=== PATIENT | male | born 1930 | race Caucasian/White ===

== ENCOUNTER 2016-08-03 07:10 | Day surgery (SDC) | payer MEDICARE, OTHER ==
[~2016-08-03] VITALS: Ht 170.2 cm; Wt 70.0 kg
[~2016-08-03 07:10] MED LIST: AMLO-39 PO; ASCO100089 PO; ASPI325T32 PO; ATOR20TA PO; CHOL5000 PO; CRAN500T PO; CYAN1TAB19 PO; GLUC500T12 PO; IRON PO; LISI10TA PO; OMEP-113 PO
[2016-08-03 07:41] VITALS: BP 140/76; PULSE 58; RESP 16; O2SAT 94
[2016-08-03] MEDS: Lactated Ringer's 1,000 ML IV SCH ×3 (07:44→08:22)
[2016-08-03] MEDS ORDERED: Lactated Ringer's 1,000 ML IV SCH (07:49)
[2016-08-03] MEDS ORDERED: Ondansetron 2 mg/mL 2 mL Inj IVPUSH PRN (07:50)
[2016-08-03] MEDS ORDERED: MetoCLOpramide 5 mg/mL 2 mL Inj IVPUSH PRN (07:50)
[2016-08-03 08:48] VITALS: BP 78/55; PULSE 60; RESP 12; O2SAT 93
[2016-08-03 08:50] VITALS: BP 84/46; PULSE 62; RESP 12; O2SAT 93
[2016-08-03 08:56] VITALS: BP 87/63; PULSE 63; RESP 12; O2SAT 95
[2016-08-03 09:14] VITALS: BP 122/72; PULSE 61; RESP 12; O2SAT 94
[2016-08-03 09:16] VITALS: BP 119/70; PULSE 60; RESP 14; O2SAT 98
--- NOTE | 2016-08-03 09:37 | ENDO ---
[address] [address] ENDOSCOPY PROCEDURE PATIENT: GAYLE MARTI : 1930 MR#: [id number] ADMIT: 08/03/2016 JOB ID: [id number] DATE OF SERVICE: 08/03/2016 PRIMARY PROVIDER: FISH Bull. PROCEDURE: 1. Esophagogastroscopy with biopsy. 2. Colonoscopy with hot snare polypectomy and cold forceps polypectomy. INDICATIONS: An 86-year-old male with a recent ED visit for epigastric pain. He has a history of reflux, remote history of EGD and what sounds like dilatation per chart review. He has a history of colon polyps as well. EGD and colonoscopy were therefore requested and are pursued today. EQUIPMENT: PCF-H180AL and GIF-H180J. SEDATION: Monitored anesthesia as provided by Dr. Kushal Crowell. COMPLICATIONS: None identified. BOWEL PREPARATION: Fair, adequate exam. PROCEDURE INFORMATION: After the risks and benefits were explained, written and verbal informed consent was obtained. The patient was brought into the endoscopy suite and placed into the left lateral decubitus position. Sedation was achieved using the above-stated medications with the addition of oxygen via nasal cannula. The scope was introduced into the mouth through the bite block, and advanced under direct visualization through the oropharynx, esophagus, down into the proximal stomach. Based on the presence of a massive hiatal hernia I could not advance down through the antrum nor into the duodenum. The scope was ultimately withdrawn, stomach decompressed, and the scope removed from the patient who tolerated the procedure well. The patient was then turned around. A digital rectal examination accomplished. Mild internal hemorrhoids. Prostate hypertrophy was apparent. The scope was then introduced into the rectum and advanced under direct visualization to the cecum as identified by the appendiceal orifice and ileocecal valve. The scope was slowly withdrawn to carefully examine the mucosa for any defects or lesions. Retroflexed views were avoided in the rectum. Multiple direct views were made through the dentate line for exclusion of pathology. The colon was decompressed. The scope removed from the patient who tolerated the procedure well. FINDINGS: 1. Duodenum: Not seen. 2. Stomach: The patient appeared to have a massive hiatal hernia. After coming down into the stomach, there was a cavernous proximal stomach but I could not find the egress point out towards antrum. Eventually, I was able to, and it actually appeared as though the antrum went back up into the chest alongside the lower esophageal sphincter suggestive of a paraesophageal hernia. We could not advance beyond the antrum. A single biopsy was taken from the stomach for exclusion of H. pylori or other pathology. The patient had obvious Familia erosions associated with the diaphragmatic hiatus. 3. Esophagus: The squamocolumnar junction appeared to extend up into the tubular esophagus in the 9 o'clock location. It was very difficult to obtain visualization at this level but I suspect there may have been a short segment of Worthington's, and we took a small biopsy. When we first arrived at the distal esophagus, there was evidence of a nonobstructing Schatzki's as well. This, in essence, disappeared for the latter part of our interrogation. The GE junction was judged to be at about 43 cm from the incisors. 4. Colon: A couple of small polyps were removed with hot snare from the transverse colon. There was a diminutive polyp in the ascending removed with a cold forceps. No other significant pathology appreciated throughout. The patient had some diverticulosis in the left colon. There was a sigmoid classic lipoma. ENDOSCOPIC DIAGNOSES: 1. Massive hiatal hernia with paraesophageal component. 2. 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 3. Schatzki's. 4. Mild gastropathy. 5. Diverticulosis. 6. Hemorrhoids. 7. Colon polyps. RECOMMENDATIONS: 1. Await histopathology. 2. I suspect the patient's trip to the ED to have been related to his large hiatal hernia. If this remains relatively asymptomatic, I am not sure that surgical intervention would be appropriate. It may be worthwhile for documentation sake, however, to, at the very least, pursue an upper GI series to get a better sense as to the anatomy moving forward.
--- NOTE | 2016-08-03 14:36 | PCM.HPANE ---
Patient Data Surgeon Admitting Provider: Attending Provider:Kenyon Cabezas MD Primary Care Physician:Joseph Bowles Other Provider:Chelsea Roweingham Anesthesia Reason for Visit Malignant Neoplasm Colon Screening, Gerd Ht/WT & BMI Body Mass Index Allergies Coded Allergies: Penicillins (Verified Allergy, Unknown, 09/19/14) Sulfa (Sulfonamide Antibiotics) (Verified Allergy, Unknown, Hives, 08/03/16 ) Past Anesthesia History Anesthesia History: Denies:: Anesthesia Reactions Diabetes History Hx Diabetes?: No MRSA MRSA: No Medications Active Scripts Atorvastatin (Lipitor)20 Mg Clqqwe60 Mg PO HS #30 TABLET Ref 3 Prov:Raymond Albright MD 09/20/14 Reported Medications Cholecalciferol (Vitamin D3) (Vitamin D3)5,000 Unit Capsule5,000 Unit PO DAILY 07/30/16 Ascorbic Acid (Vitamin C)1,000 Mg Tab.chew1,000 Mg PO DAILY Ref 0 07/30/16 Amlodipine (Norvasc)5 Mg Tablet5 Mg PO DAILY Ref 0 07/30/16 Lisinopril 10 Mg Ajfqul17 Mg PO DAILY 30 Days Ref 0 07/30/16 [Iron ER] No Conflict Check45 Mg PO DAILY 07/30/16 Glucosamine 500 Mg Gogxne716 Mg PO DAILY 07/30/16 Cranberry Fruit (Cranberry)500 Mg Tab.nbyj800 Mg PO DAILY 07/30/16 Cyanocobalamin/FA/Pyridoxine (B Complex-Folic Acid Tablet)1 Each Tablet1 Each PO DAILY 07/30/16 Aspirin 325 Mg Ayirmd272 Mg PO DAILY #1 BOTTLE 07/30/16 Omeprazole Magnesium (Omeprazole)20 Mg Capsule.dr20 Mg PO DAILY 09/19/14 Discontinued Scripts Aspirin 81 Mg Tablet.dr81 Mg PO DAILY #1 BOTTLE Ref 3 Prov:Raymond Albright MD 09/20/14 Lisinopril 5 Mg Tablet5 Mg PO DAILY #30 TABLET Ref 3 Prov:Raymond Albright MD 09/20/14 History History of ENT Problems?: No Hx of Heart Problems?: Yes Cardiovascular History: Positive for:: Cardiac Surgery Congestive Heart Failure Hypertension Pacemaker Denies:: Chest Pain Edema Heart Murmur Irregular Heartbeat Thrombophlebitis Hx of Respiratory Problem?: Yes Respiratory History: Positive for:: Dyspnea Denies:: Asthma Chest Surgery Emphysema Hemoptysis Pneumonia Tuberculosis Hx Neurologic Problems?: No Gastrointestinal History: Positive for:: Gastroesphageal Reflux Heartburn Denies:: Diverticulitis Gastrointestinal Bleeding Hepatitis Hiatal Hernia Rectal Bleeding Hx of Problems?: Yes Genitourinary History: Positive for:: Kidney Stones Denies:: HX of Hemodialysis Urinary Tract Infection HX of Peritoneal Dialysis: No Male Hx: Positive for:: Prostate Problems (TURP) Denies:: Scrotal Mass Testicular Surgery Hx Musculoskeletal Problems?: No Musculoskeletal History: Denies:: Back Injury Hx of Psycho/Social Problems?: No Hx Surgeries?: Yes Other History: Positive for:: Cancer (skin cancer) Hospitalization Denies:: Thyroid Disease History Blood Transfusions: Positive for:: Blood Transfusions Denies:: Blood Transfuse Reaction Hx Diabetes: No Hx Alcohol Use: NoHx Substance Use: No Smoking Status: Never Smoker Have You Smoked inLast 12 mo: No Stop/Bang Risk Assessment Category Category 1A: Patient has history of documented sleep apnea, and HAS NOT received any narcotic, sedative or anesthesia administration during this stay. Category 1B: Patient has history of documented sleep apnea, and HAS received any narcotic , sedative or anesthesia administration during this stay Category 2: Patient has SUSPECTED Obstructive Sleep Apnea, and HAS received any narcotic , sedative or anesthesia administration during this stay. Category 3: Patient has SUSPECTED Obstructive Sleep Apnea and HAS NOT received narcotic, sedative or anesthesia administration during this stay. Category 4: Outpatient in Procedural Areas with known sleep apnea or who screen positive for High Risk via the STOP/BANG questionnaire. Exam Exam General Appearance: Alert, Oriented X3, Cooperative, No Acute Distress HEENT/AIRWAY: MP 2 Lungs: Clear to Auscultation, Normal Air Movement Heart: Exam Unremarkable, Regular Rate/Rhythm, No Murmurs/Rubs/Gallops Plan Impression Patient chart reviewed, patient interviewed and anesthestic plan with risks, benefits, and alternatives discussed, and informed consent obtained. NPO Status: > 8HRS ASA Physical Status: ASA2 Mod Systemic Disease Anesthetic Plan: MAC Bene/Risks/Altern/Consents: Yes HP Complete Prior to Induction: Yes Kushal Crowell MD Aug 03, 2016 07:31
--- NOTE | 2016-08-03 14:36 | PCM.ANEP1 ---
Post Anesthesia Phase 1 PACU Phase 1 Assessment Vital Signs Vital Signs Date Time Temp Pulse Resp B/P Pulse Ox O2 Delivery O2 Flow Rate FiO2 08/03/16 09:16 60 14 119/70 98 Room Air 08/03/16 09:14 61 12 122/72 94 Room Air 08/03/16 08:56 63 12 87/63 95 Room Air 08/03/16 08:50 62 12 84/46 93 Room Air 08/03/16 08:48 60 12 78/55 93 Room Air 08/03/16 07:41 36.7 58 16 140/76 94 Room Air Anesthetic Administered: MAC Level of Alertness: Awake, talking KEATING's with Equal Strength: Yes Pain: No Nausea or Vomiting: No Oxygen Delivery: Room Air Lungs: Clear to Auscultation, Normal Air Movement Dermatome Level: Full Sensation Kushal Crowell MD Aug 03, 2016 14:36
--- NOTE | 2016-08-03 14:36 | PCM.ANEP2 ---
Post Anesthesia Evaluation ASA/CMS Post Anesthesia VS in Patient's Normal Range?: Yes Resp Stable; Airway Patent?: Yes CV Function & Hydration Stable: Yes Mental Status Recovered?: Yes Pain control Satisfactory?: Yes N/V Control Satisfactory?: Yes Kushal Crowell MD Aug 03, 2016 14:36
--- NOTE | 2016-08-04 12:36 | PATH ---
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 Negative for evidence of Helicobacter. Negative for intestinal metaplasia. Negative for dysplasia and malignancy. 2.DISTAL ESOPHAGUS BIOPSY: MINUTE FRAGMENT OF GASTRIC CARDIA-TYPE MUCOSA, NEGATIVE FOR SPECIALIZED METAPLASIA OF HERNANDEZ' S-TYPE ESOPHAGUS. NO SQUAMOUS MUCOSA IDENTIFIED. Negative for dysplasia and malignancy. 3.COLON POLYPS: TUBULAR ADENOMA INVOLVING BOTH BIOPSY FRAGMENTS. ICD10 CODE D12.6 GROSS DESCRIPTION: The specimen is received in three formalin filled containers labeled with the patient's name. 1). The specimen is sublabeled "gastric" and consists of a 0.3 x 0.2 x 0.2 CM portion of tissue which is entirely submitted in cassette 1A. 2). The specimen is sublabeled "distal esophagus" and consists of a less than 0.1 CM portion of tissue which is entirely submitted in cassette 2A. 3). The specimen is sublabeled "colon polyps" and consists of 2 portions of tissue which aggregate to 0.4 x 0.3 x 0.2 CM. The specimen is entirely submitted in cassette 3A. 08/03/2016 [facility] MICRO DESCRIPTION: See diagnosis. ICD-9 CODES: CPT CODES: 1: 85033 2: 47218 3: 34391 Electronically Signed Out Kenyon Saha MD [facility] Pathology [facility] [address], [place] [address] Technical component performed at [facility], [facility] [address], [place], [address]
== END 2016-08-03 23:59 | disposition home or self-care (01) ==
LOC: END 07:10
PROVIDERS: ATTEND Internal Medicine Gastroenterology
DX: Z12.11 Encounter for screening for malignant neoplasm of colon (principal); Z86.010 Personal history of colon polyps; D12.3 Benign neoplasm of transverse colon; K64.9 Unspecified hemorrhoids; K57.30 Diverticulosis of large intestine without perforation or abscess without bleeding; K21.9 Gastro-esophageal reflux disease without esophagitis; K22.2 Esophageal obstruction; D64.9 Anemia, unspecified; K44.9 Diaphragmatic hernia without obstruction or gangrene; K29.50 Unspecified chronic gastritis without bleeding; R13.10 Dysphagia, unspecified; I10 Essential (primary) hypertension; I25.10 Atherosclerotic heart disease of native coronary artery without angina pectoris; Z95.0 Presence of cardiac pacemaker; Z79.82 Long term (current) use of aspirin; Z87.442 Personal history of urinary calculi; Z85.828 Personal history of other malignant neoplasm of skin
CPT/HCPCS: 43239; 45380; 45385; 88305; J7120

== ENCOUNTER 2016-12-22 07:50 | Day surgery (SDC) | payer MEDICARE, OTHER ==
[~2016-12-22 07:50] MED LIST changes: +Lidocaine Topical 2% 30 mL Jelly ONE
== END 2016-12-22 23:59 | disposition home or self-care (01) ==
LOC: END 07:50
PROVIDERS: ATTEND Surgery
DX: K44.9 Diaphragmatic hernia without obstruction or gangrene (principal)

== ENCOUNTER 2017-01-20 07:59 | Observation (INO) | payer MEDICARE, OTHER ==
--- NOTE | 2017-01-18 15:21 | PCM.ANEPRE ---
Anesthesia Pre-Op Review Reason for Review: Cardiac concerns, recent stress ordered my bronc breaker Anesthesia Recommendations: Proceed with Procedure Additional Comments 86 yo M with h/o moderated aortic stenosis, CAD s/p stents and pacemaker placement scheduled for laparoscopic paraesophageal hernia repair on 01/20. Patient had recent treadmill stress where he went 3:36 with NO angina or ischemic changes on MPS (and normal EF) which would correlate with > 4 METs exercise tolerance. Of note, he reportedly bikes 30 minutes then swims 1/2 mile 3 times per week without anginal symptoms or worsening SOB. No further cardiac testing recommended at this time. Surgery can proceed as scheduled if no interim changes in patient's health and pending evaluation by anesthesiologist on day of surgery. Chart Reviewed by: MD Giuliano Slade Eric J MD Jan 18, 2017 15:21
[~2017-01-20] VITALS: Ht 170.2 cm; Wt 69.0 kg
[2017-01-20] VITALS (12 sets, daily range): BP systolic 96–145; BP diastolic 56–73; PULSE 61–74; RESP 13–19; O2SAT 92–98
[~2017-01-20 07:59] MED LIST changes: +CeFAZolin Inj 2 GM in IV Premix 1 EACH IV ONE; -GLUC500T12 PO; +Lactated Ringer's 1,000 ML IV SCH; -Lidocaine Topical 2% 30 mL Jelly ONE
[2017-01-20] MEDS ORDERED: CeFAZolin 2 Gm/50 mL D5W Duplex Bag IV ONE (08:18)
[2017-01-20] MEDS ORDERED: Lactated Ringer's 1,000 ML IV ONE ×2 (09:10→14:35)
--- NOTE | 2017-01-20 09:29 | PCM.HPANE ---
Patient Data Surgeon Admitting Provider: Attending Provider:Vanessa Leos MD Primary Care Physician:Shefali Luciano Other Provider:Vy Rowe Anesthesia Reason for Visit Paraesophageal Hernia Ht/WT & BMI Height (Feet): 5 Height (Inches): 7.00 Weight (Kilograms): 68.900 Body Mass Index 23.00 Allergies Coded Allergies: Penicillins (Verified Allergy, Unknown, 01/17/17) Sulfa (Sulfonamide Antibiotics) (Verified Allergy, Unknown, Hives, 01/17/17) Past Anesthesia History Anesthesia History: Denies:: Abnormal Airway, Anesthesia Reactions, Difficult Intubation, Fam Anesthesia Reaction, Fam Malignant Hypertherm, Malignant Hyperthermia Diabetes History Hx Diabetes?: No MRSA MRSA: No Medications Blood Thinner: Aspirin Last Dose Blood Thinner: Jan 17, 2017 Hypertension Medication: No Home Meds Incl Beta Linda: No Active Scripts Atorvastatin (Lipitor)20 Mg Fbncrk76 Mg PO HS #30 TABLET Ref 3 Prov:Raymond Albright MD 09/20/14 Reported Medications Cholecalciferol (Vitamin D3) (Vitamin D3)5,000 Unit Capsule5,000 Unit PO DAILY 07/30/16 Ascorbic Acid (Vitamin C)1,000 Mg Tab.chew1,000 Mg PO DAILY Ref 0 07/30/16 Amlodipine (Norvasc)5 Mg Tablet5 Mg PO DAILY Ref 0 07/30/16 Lisinopril 10 Mg Rmqmkt33 Mg PO DAILY 30 Days Ref 0 07/30/16 [Iron ER] No Conflict Check45 Mg PO DAILY 07/30/16 Cranberry Fruit (Cranberry)500 Mg Tab.uzxl465 Mg PO DAILY 07/30/16 Cyanocobalamin/FA/Pyridoxine (B Complex-Folic Acid Tablet)1 Each Tablet1 Each PO DAILY 07/30/16 Aspirin 325 Mg Vmjxuc339 Mg PO DAILY #1 BOTTLE 07/30/16 Omeprazole Magnesium (Omeprazole)20 Mg Capsule.dr20 Mg PO DAILY 09/19/14 Discontinued Reported Medications Glucosamine 500 Mg Flddml151 Mg PO DAILY 07/30/16 History History of ENT Problems?: Yes HEENT History: Positive for:: Cataracts (rt eye) Dysphagia ( NOT SINCE BALLOON DILATION) Denies:: Abnormal Airway Difficult Intubation Glaucoma Hearing Problem Sinus Problem TMJ Denture Type: Partial- Upper Teeth Condition: Within Normal Limits Hx of Heart Problems?: Yes Cardiovascular History: Positive for:: Abdominal Aortic Aneurism (survalance at this time last ultrasound November 2016) Cardiac Surgery (Pacemaker, stents placed at [facility] ) Coronary Artery Disease Hypertension Pacemaker Denies:: AICD Atrial Fibrillation Chest Pain Congestive Heart Failure Edema Heart Murmur Irregular Heartbeat Thrombophlebitis Valvular Heart Disease Hx of Respiratory Problem?: Yes Respiratory History: Denies:: Asthma COPD Chest Surgery Cough Dyspnea Emphysema Hemoptysis Pneumonia Pulmonary Embolism Tuberculosis Use of C-PAP Machine Use of Inhalers / NEBS Hx Neurologic Problems?: No Neurological History: Denies:: Alzheimer's Disease CVA Dementia Dizziness Headaches Multiple Sclerosis Parkinson's Disease Seizures TIA Hx of GI Problems?: Yes Hx of Problems?: Yes Genitourinary History: Positive for:: Kidney Stones Denies:: HX of Hemodialysis Urinary Tract Infection HX of Peritoneal Dialysis: No Male Hx: Positive for:: Prostate Problems (TURP) Denies:: Scrotal Mass Testicular Surgery Skin History: Denies:: History Skin Disorders? Pressure Ulcers Hx Musculoskeletal Problems?: No Musculoskeletal History: Denies:: Back Injury Degenerative Joint Joint Replacement Musculoskeletal Trauma Osteoarthritis Rheumatoid Arthritis Systemic Lupus Hx of Psycho/Social Problems?: Yes Psycho Social History: Positive for:: Hx Depression (BETTER NOW. BAD AFTER SPOUSE PASSING) Denies:: Anxiety Hx Surgeries?: Yes (2 years ago for kary, TURB, in [place]) Hx Any Other Health Problems?: Yes Other History: Positive for:: Cancer (skin cancer) Hospitalization Denies:: Endocrine Disease Thyroid Disease History Blood Transfusions: Positive for:: Accept Blood Products? Blood Transfusions Denies:: Blood Transfuse Reaction Hx Diabetes: No Hx Alcohol Use: YesAlcoholic Drinks Per Day: mixed drink a dayHx Substance Use : No Smoking Status: Never Smoker Have You Smoked inLast 12 mo: No Stop/Bang Treated for Sleep Apnea?: No Do You Have a CPAP Machine?: No S-Snoring: Do You Snore Loudly: No T-Tired: feel tired, fatigued: No O-Obsered: Observed not breath: No P-Blood Pressure: treated: Yes B- Body Mass Index > 35 kg/m2: No A- Age over 50: Yes N- Neck Large Circumference: No G- Gender Male: Yes ONI Total Score: 3 ONI Risk Assessment: Low Risk, <3 Yes Risk Assessment Category Category 1A: Patient has history of documented sleep apnea, and HAS NOT received any narcotic, sedative or anesthesia administration during this stay. Category 1B: Patient has history of documented sleep apnea, and HAS received any narcotic , sedative or anesthesia administration during this stay Category 2: Patient has SUSPECTED Obstructive Sleep Apnea, and HAS received any narcotic , sedative or anesthesia administration during this stay. Category 3: Patient has SUSPECTED Obstructive Sleep Apnea and HAS NOT received narcotic, sedative or anesthesia administration during this stay. Category 4: Outpatient in Procedural Areas with known sleep apnea or who screen positive for High Risk via the STOP/BANG questionnaire. Exam Exam Vital Signs Vital Signs Date Time Temp Pulse Resp B/P Pulse Ox O2 Delivery O2 Flow Rate FiO2 01/20/17 09:11 36.3 69 18 145/73 98 Room Air General Appearance: Oriented X3 HEENT/AIRWAY: MP 2 Lungs: Normal Air Movement Heart: Regular Rate/Rhythm Meds/Labs/Diagnostics Admission Meds Current Medications Lactated Ringer's (Lr) 1,000 ml @ ud STK-MED ONCE IV Last administered on 01/20t 09:10; Start 01/20/17 at 09:10; Stop 01/20/17 at 09:11; Status DC Plan Impression Patient chart reviewed, patient interviewed and anesthestic plan with risks, benefits, and alternatives discussed, and informed consent obtained. ASA Physical Status: ASA3 Severe Disease Anesthetic Support Modalities: Arterial Line Anesthetic Plan: GA Bene/Risks/Altern/Consents: Yes HP Complete Prior to Induction: Yes Dev Lowe MD Jan 20, 2017 09:29
[2017-01-20] MEDS ORDERED: Lactated Ringer's 500 ML IV PRN (10:23)
[2017-01-20] MEDS ORDERED: Lactated Ringer's 1,000 ML IV SCH (10:23)
[2017-01-20] MEDS ORDERED: fentaNYL-PF 50 mCg/mL 2 mL Inj IVPUSH PRN (10:25)
[2017-01-20] MEDS ORDERED: MetoCLOpramide 5 mg/mL 2 mL Inj IVPUSH PRN ×2 (10:25→15:35)
[2017-01-20] MEDS ORDERED: HYDROmorphone 1 mg/mL Inj IVPUSH PRN (10:25)
[2017-01-20] MEDS ORDERED: Phenylephrine 10,000 mCg/mL Inj IVPUSH PRN (10:25)
[2017-01-20] MEDS ORDERED: EPHEDrine Sulfate 50 mg/mL Inj IVPUSH PRN (10:25)
[2017-01-20] MEDS ORDERED: Ondansetron 2 mg/mL 2 mL Inj IVPUSH PRN ×3 (10:25→15:35)
[2017-01-20] MEDS ORDERED: Labetalol 5 mg/mL 4 mL Inj IV PRN (10:25)
[2017-01-20] MEDS ORDERED: Dexamethasone 4 mg/mL Inj IVPUSH PRN (10:25)
[2017-01-20] MEDS ORDERED: Bupivacaine-MPF 0.5% 30 mL Inj INFILTRATE ONE (11:14)
--- NOTE | 2017-01-20 12:57 | PCM.CONSUR ---
Subjective Date of Service: Jan 20, 2017 History of Present Illness Pt is an 86 y/o man evaluated by under anesthesia pre planned paraesophageal hernia repair with difficult catheter placement. Gen Surgery with difficulty passing catheter and blood returned asked for assistance with this before proceeding with their planned surgery. Pt was joyce, anesthetize and in the supine position. +h/o TURP by history Failed 16fr coude catheter with good lubrication. No known h/o difficult catheterization, unable to assess his voiding history up to this time. Reason for Consultation I was asked by Dr Leos for evaluation/treatment recs and assistance placing cat cathteter pre op in an 86 y/o gentleman with difficult catheter. Allergy Allergies: Coded Allergies: Penicillins (Verified Allergy, Unknown, 01/17/17) Sulfa (Sulfonamide Antibiotics) (Verified Allergy, Unknown, Hives, 01/17/17) Medications Last Dose Blood Thinner: Jan 17, 2017 Hypertension Medication: No Home Meds Incl Beta Blockers: No ([Iron ER]) 45 MG PO DAILY (Reported) Last Taken: 45mg daily on 01/19/17 Amlodipine (Norvasc) 5 Mg Tablet 5 MG PO DAILY (Reported) Last Taken: 5mg on 01/19/17 Ascorbic Acid (Vitamin C) 1,000 Mg Tab.chew 1, 000 MG PO DAILY (Reported) Last Taken: 1000mg daily on 01/13/17 Aspirin (Aspirin) 325 Mg Tablet 325 MG PO DAILY (Reported) Last Taken: 325mg daily on 01/17/17 Atorvastatin (Lipitor) 20 Mg Tablet 20 MG PO HS Prescribed by: STERLING DOUGLASS DO Last Taken: 20mg @ S on 01/19/17 Cholecalciferol (Vitamin D3) (Vitamin D3) 5, 000 Unit Capsule 5,000 UNIT PO DAILY (Reported) Last Taken: 5,000 units on 01/19/17 Cranberry Fruit (Cranberry) 500 Mg Tab.chew 500 MG PO DAILY (Reported) Last Taken: 500mg Daily on 01/17/17 Cyanocobalamin/FA/Pyridoxine (B Complex- Folic Acid Tablet) 1 Each Tablet 1 EACH PO DAILY (Reported) Last Taken: 1 tablet on 01/16/17 Lisinopril (Lisinopril) 10 Mg Tablet 10 MG PO DAILY (Reported) Last Taken: 10mg daily on 01/20/17 0600 Omeprazole Magnesium (Omeprazole) 20 Mg Capsule.dr 20 MG PO DAILY (Reported) Last Taken: 20mg daily on 01/20/17 0600 Discontinued Medications Glucosamine (Glucosamine) 500 Mg Tablet 500 MG PO DAILY (Reported) Past Surgical History Surgeries: Yes (2 years ago for kary, TURB, in [place]) Patient/Family Past Surgical: Positive for:: Accept Blood Products?, Blood Transfusions, Denies:: Anesthesia Reactions, Blood Transfuse Reaction, Malignant Hyperthermia Social History Hx Alcohol Use: Yes Alcoholic Drinks Per Day: mixed drink a day Hx Substance Use: No PMH HEENT History History of ENT Problems?: Yes HEENT History: Positive for:: Cataracts (rt eye) Dysphagia ( NOT SINCE BALLOON DILATION) Denies:: Abnormal Airway Difficult Intubation Glaucoma Hearing Problem Sinus Problem TMJ Cardiovascular History History of Heart Problems?: Yes Cardiovascular History: Positive for:: Abdominal Aortic Aneurism (survalance at this time last ultrasound November 2016) Cardiac Surgery (Pacemaker, stents placed at [facility] ) Coronary Artery Disease Hypertension Pacemaker Denies:: AICD Atrial Fibrillation Chest Pain Congestive Heart Failure Edema Heart Murmur Irregular Heartbeat Thrombophlebitis Valvular Heart Disease Respiratory History of Respiratory Problem: Yes Respiratory History: Denies:: Asthma COPD Chest Surgery Cough Dyspnea Emphysema Hemoptysis Pneumonia Pulmonary Embolism Tuberculosis Use of C-PAP Machine Use of Inhalers / NEBS Neurological History Hx Neurologic Problems?: No Neurological History: Denies:: Alzheimer's Disease CVA Dementia Dizziness Headaches Multiple Sclerosis Parkinson's Disease Seizures TIA Gastrointestinal History HX of GI Problems?: Yes Gastrointestinal History: Positive for:: Gastroesphageal Reflux Heartburn Denies:: Cirrhosis Diverticulitis Gastrointestinal Bleeding Hepatitis Hiatal Hernia Rectal Bleeding Genitourinary History Hx of Gu Problems?: Yes Genitourinary History: Positive for: Kidney Stones Denies: HX of Hemodialysis Urinary Tract Infection Female/Male History Reproductive History Male: Positive for: Prostate Problems (TURP) Denies: Scrotal Mass Skin History Skin History: Denies:: History Skin Disorders? Pressure Ulcers Musculoskeletal History Hx Musculoskeletal Problems?: No Musculoskeletal History: Denies:: Back Injury Degenerative Joint Joint Replacement Musculoskeletal Trauma Osteoarthritis Rheumatoid Arthritis Systemic Lupus Psycho Social History Hx of Psycho/Social Problems?: Yes Psycho Social History: Positive for:: Hx Depression (BETTER NOW. BAD AFTER SPOUSE PASSING) Denies:: Anxiety Other History Hx Any Other Health Problems?: Yes Other History: Positive for:: Cancer (skin cancer) Hospitalization Denies:: Endocrine Disease Thyroid Disease Diabetes: No Social History Hx Alcohol Use: YesAlcoholic Drinks Per Day: mixed drink a dayHx Substance Use : No Smoking Status: Never Smoker Objective Exam Objective pt asleep in OR Vital Signs & I/O Vital Sign- Last 8 Hours Date Time Temp Pulse Resp B/P Pulse Ox O2 Delivery O2 Flow Rate FiO2 01/20/17 09:11 36.3 69 18 145/73 98 Room Air Lab & Micro Results see chart Review of Systems: Constitutional: Negative, except as otherwise mentioned in the history above. Ophthalmologic: Negative, except as otherwise mentioned in the history above. Cardiovascular: Negative, except as otherwise mentioned in the history above. Respiratory: Negative, except as otherwise mentioned in the history above. Gastrointestinal: Negative, except as otherwise mentioned in the history above. Genitourinary: Negative, except as otherwise mentioned in the history above. Musculoskeletal: Negative, except as otherwise mentioned in the history above. Neurological: Negative, except as otherwise mentioned in the history above. Psychiatric: Negative, except as otherwise mentioned in the history above. Hematologic/Lymphatic: Negative, except as otherwise mentioned in the history above. Allergic/Immunologic: Negative, except as otherwise mentioned in the history above. H&P Surgical Exam Exam General: Other (under general anesthesia at my eval) HEENT: Other (intubated) Neck: Within normal limits & unremarkable (intubated) Cardiac: Other (RR, warm ext) Abdomen: Soft Breasts: Not Indicated Additional Information circ phallus, blood at meatus nl ext genitalia otherwise some testis atrophy Assessment & Plan Assessment difficult catheter blood at meatus ddx stricture, bnc, urethral false passage, Plan: See procedure note: Pt prepped normally with betadyne prior to my arrival gentle probing with 14fr silicone catheter met resistance, blood at end of catheter once removed. Flexible cystoscopy utilized, passed clot in bulbar urethra, poor visibility, some evidence of previously resected prostate and perhaps mild BNC, though scope passed 16fr without difficulty. Wire advanced and scope backed out over wire. 16fr [place] tip catheter advanced over wire with good urine return after balloon blown up and KY jelly aspirated through catheter. Pt tolerated well (asleep gen anesthesia) Merly Terrell MD Jan 20, 2017 12:57
--- NOTE | 2017-01-20 13:41 | OP ---
[address] [address] OPERATIVE REPORT PATIENT: GAYLE MARTI : 1930 MR#: [id number] ADMIT: 01/20/2017 JOB ID: [id number] DATE OF SURGERY: 01/20/2017 SURGEON: Merly Terrell MD PROCEDURE: Flexible cystoscopy with wire placement and difficult Oates catheter placement over a wire. ANESTHESIA: General. PREOPERATIVE DIAGNOSIS(ES): Difficult catheter in preparation for paraesophageal hernia repair per Dr. Leos. POSTOPERATIVE DIAGNOSIS(ES): Difficult catheter in preparation for paraesophageal hernia repair per Dr. Leos. INDICATIONS: The patient is an 86-year-old gentleman on the general surgery service admitted for planned paraesophageal hernia repair with general surgery encountering difficulties placing Oates catheter initially and requesting urology assistance. PROCEDURE DETAIL: Upon my arrival to the operating room the patient was in supine position under general anesthesia. His genitalia was prepped in a normal fashion. He had some blood at the urethral meatus. Gentle passage of a 14-Lithuanian silicon catheter met with resistance and some blood return, thus this was removed and we used the 16-Lithuanian R diameter flexible cystoscope. This was done with direct visual into the patient's urethra, up through the bulbar urethra, where there was considerable clot and difficulty visualizing any false passage, however there was some clot, and then we were able to maneuver the scope up and through the prostate where there did appear to be some evidence of prior TURP. However, visualization was still fairly poor. Bladder neck was seen to have perhaps a wide caliber bladder neck contracture, although this was not entirely certain. The scope passed this with gentle pressure and once it was up into the patient's bladder it was advanced further, and then we advanced a 0.35 Bentson guidewire through the scope and backed the scope out over the wire, leaving the wire in place, and then we advanced a 16-[place] tip catheter over the wire into good position in the patient's bladder. The wire itself was removed, the balloon was inflated, and the catheter was irrigated out. Several small clots were removed as was the KY used to facilitate the scope and catheter passage. It was draining nicely. The scope was removed, the Oates was left to gravity drainage, and the case was turned over to the general surgeons to proceed with their prep and drape for their procedure. Please see the general surgery note for the bulk of this patient's case. This note represents just the Oates catheter placement initially with flexible ureteroscopy.
[2017-01-20 14:36] LABS: APPEARANCE,URINE TURBID (CLEAR,HAZY); COLOR,URINE BLOODY (YELLOW)
[2017-01-20 14:37] LABS: OCCULT BLOOD,URINE LARGE (NEGATIVE); UROBILINOGEN,URINE NORMAL (NORMAL)
--- NOTE | 2017-01-20 15:16 | PCM.SURGOP ---
Surgical Operative Report Date of Service: Jan 20, 2017 Pre Operative Diagnosis Large paraesophageal hernia Post Operative Diagnosis Large paraesophageal hernia Procedure: Laparoscopic paraesophageal hernia repair with Toupet fundoplication Surgeon and Densitometer Reader: Surgeon: Vanessa Leos MD Assistants: Trent Harrison MD R3; Daniel Ramirez PA-C; Mitul Us PA-C; Mario Lindo, MS3 Indication for Procedure This is an 86-year-old man who on upper endoscopy was found to have a large paraesophageal hernia with most of the stomach in the chest. When I initially met him, due to his age and comorbidities, we decided to not pursue repair; however, over time, he became increasingly symptomatic with heartburn, acid brash, and dysphagia. He is also very active and swims and ride bikes several times a week despite a history of coronary artery disease and aortic stenosis. Because his paraesophageal hernia was large, symptomatic, and he was deemed to be a surgical candidate, he was scheduled for repair. Findings: 1. Large paraesophageal hernia with approximately 75% of the stomach in the chest. There were no additional incarcerated viscera. 2. The crura were closed primarily with a partial-thickness right crural relaxing incision. 3. 270 posterior (Toupet) fundoplication. 4. The sac was very thick and vascularized, and was removed from the mediastinum and then from the body. Procedure Details The patient was brought to the operating room and placed in supine position. General endotracheal anesthesia was smoothly induced. A warming blanket and SCDs were placed. The patient was repositioned into low lithotomy with the left arm tucked. Antibiotics were infused. The operative field was prepped and draped in a sterile fashion. A pause was performed to confirm the correct patient, procedure, and site. The abdomen was accessed using a Veress needle in the left upper quadrant after controlling the fascia and was insufflated. An 11 mm Optiview port was inserted and intraperitoneal insufflation began. An 11 mm port was then placed in the mid abdomen just to the left of midline. The 5 mm port was placed in the mid abdomen laterally on the left. A 5mm liver retractor was used with placement in a right lateral position. A 5mm trocar was placed in the right upper quadrant. An additional 5 mm port was placed in the left mid abdomen for the pathology assistant's left hand. The stomach was identified and carefully reduced out of the mediastinum. The short gastrics were taken down using LigaSure device. Dissection proceeded at the hiatus starting on the left. The plane between the hernia sac and pleura was entered and the hernia sac was carefully removed from the mediastinum. No defects were made in the pleura during this portion of the dissection. The gastrohepatic ligament was then divided up to the right jack and the right sided dissection was completed with care taken to preserve the entire jack and both vagi. Once the esophagus was fully dissected circumferentially, a [place] drain was then placed around the esophagus at the gastroesophageal junction for retraction to facilitate a more proximal esophageal dissection. This proceeded proximally until there was 5 cm of intra- abdominal esophagus. The crural closure was then performed. Several 2-0 silk stitches were placed to reapproximate the posterior crura with minimal tension. A partial-thickness relaxing incision was performed 1 cm to the right of the right jack to obtain adequate closure. Two anterior stitches were placed as well. The reduced hernia sac was removed using the LigaSure device, with care taken to avoid injury to the stomach, esophagus, or vagus during this portion of the procedure. Attention was turned to the to Toupet fundoplication. A Toupet was chosen due to data demonstrating that it is equivalent for postoperative reflux but improves postoperative dysphagia and gas bloat, and the risk of bougie placement is avoided. A marking stitch was placed on the posterior fundus, 3 cm distal to the gastroesophageal junction and 2 cm posterior to the greater curvature. This was brought around posteriorly to align the geometry of the fundoplication. The first stitch was placed in the fundus just proximal to the marking stitch, to the esophagus at and 11 o'clock position, and to the right jack at the 11 o'clock position. The second stitch was placed from the posterior aspect of the right fundoplication to the bilateral crura posteriorly. The Joan drain was removed. Two additional stitches were then placed from the right side of the fundoplication to an 11 o'clock position on the esophagus. Care was taken to avoid inclusion of the anterior vagus in the stitches. The marking stitch was removed. Attention was then turned to the left side of the wrap. An appropriate position on the fundus was chosen to create symmetrical geometry of the fundoplication. The first stitch on the left was placed from the wrap to the esophagus to the jack, again with care taken to avoid inclusion of the anterior vagus in the stitch. Two additional sutures were then placed from the wrap to the esophagus, each 1 cm distal to the previous one. A final coronal stitch was placed from the left posterior fundoplication to the posterior aspect of the left jack. Once the procedure was complete, the 11 mm port site in the left mid abdomen was closed with an interrupted 0 PDS using a fascial closure device. The remaining ports were removed under direct vision and the abdomen was desufflated. 0.5% Marcaine with epinephrine was infused at all port sites. Skin was closed with 4-0 Monocryl. Sterile dressings were placed. All sponge, instrument, and needle counts were correct at the end of the procedure. The patient was awakened from general anesthesia and taken to the postoperative care unit in good condition. Complications There were no periprocedural complications identified. Surgical Specimen Removed: Yes Specimen sent to Pathology: No Surgical Specimen description: Hernia sac Anesthetic Plan: GA Grafts, Implants: None Output, Estimated Blood Loss: 10 (ml) Blood Administration during walsh: No Vanessa Leos MD Jan 20, 2017 15:16
[2017-01-20] MEDS ORDERED: oxyCODONE 1 mg/mL 5 mL Liquid PO PRN (15:35)
[2017-01-20] MEDS ORDERED: Acetaminophen 32 mg/mL 5 mL Liquid PO SCH (15:35)
[2017-01-20] MEDS ORDERED: ProchlorPERazine 5 mg/mL 2 mL Inj IVPUSH PRN (15:35)
[2017-01-20 15:48] LABS: Mean Corpuscular Hemoglobin 32.2 pg (27.0-35.0); Mean Corpuscular Volume 94.5 fL (81-100)
--- NOTE | 2017-01-20 16:29 | PCM.ANEP1 ---
Post Anesthesia PACU Phase 1 Assessment Vital Signs Vital Signs Date Time Temp Pulse Resp B/P Pulse Ox O2 Delivery O2 Flow Rate FiO2 01/20/17 15:40 62 15 102/59 93 Room Air 01/20/17 15:35 63 17 104/58 96 Simple Mask 10 01/20/17 15:30 62 13 112/61 94 Simple Mask 10 01/20/17 15:25 36.2 63 15 96/56 96 Simple Mask 10 01/20/17 09:11 36.3 69 18 145/73 98 Room Air Anesthetic Administered: GA Level of Alertness: Awake, talking Pain: No Nausea or Vomiting: No CV Function & Hydration Stable: Yes Airway Device: Lungs: Normal Air Movement PACU Phase 2 Assessment Patient Instructions Provided: N/A Dev Lowe MD Jan 20, 2017 16:29
--- NOTE | 2017-01-20 17:01 | NUR ---
On Unit Patient arrived from PACU at 1650, alert and oriented, minimal pain, denies nausea, c/o gas/bloating. Vitals stable, cat patent and draining monica urine. Able to self transfer from [facility] to bed. Daughter in room with patient.
[2017-01-20] MEDS ORDERED: Dexamethasone 4 mg/mL Inj ONE (17:06)
[2017-01-20] MEDS ORDERED: Neostigmine 1 mg/mL 10 mL Inj ONE (17:06)
[2017-01-20] MEDS ORDERED: Glycopyrrolate 0.2 MG/ML 1mL Inj ONE (17:06)
[2017-01-20] MEDS ORDERED: Rocuronium 10 mg/mL 5 mL Inj ONE ×2 (17:06)
[2017-01-20] MEDS ORDERED: fentaNYL-PF 50 mCg/mL 2 mL Inj ONE (17:06)
[2017-01-20] MEDS ORDERED: MetoCLOpramide 5 mg/mL 2 mL Inj ONE (17:06)
[2017-01-20] MEDS ORDERED: Ondansetron 2 mg/mL 2 mL Inj ONE (17:06)
[2017-01-20] MEDS ORDERED: Propofol 10,000 mCg/mL 20 mL Inj ONE (17:06)
[2017-01-20] MEDS ORDERED: Phenylephrine/NS 100 mCg/mL 10 mL Syringe IVPUSH ONE ×2 (17:06)
[2017-01-20] MEDS: Dextrose 5% Lactated Ringer's 1,000 ML IV SCH (17:20)
[2017-01-20] MEDS: Heparin 5,000 Unit/mL Inj SUBQ SCH (17:30)
--- NOTE | 2017-01-20 17:46 | PCM.HPMED ---
Subjective Date of Service Jan 20, 2017 Primary Provider: Admitting Physician: Primary Care Physician: Shefali Luciano Attending Physician: Vanessa Leos MD Chief Complaint: s/p elective paraesophageal hernia post-op care History of Present Illness: 86-year-old male with history of CAD s/p stent at [facility] in 2012 s/p pacemaker placement due to bradycardia in 2012, moderate aortic stenosis, hypertension, BPH Patient presented to Hospital for elective paraesophageal hernia repair, patient underwent surgery without complication performed by Dr. Vanessa Leos on 01/20. Hospitalist service was consulted for medical management. Verbal report from , hernia was large size compressing mediastinal structures , recommended prolonged observation. Prior to surgery, pt maintained healthy lifestyle, had stress test done pre-op, which was negative for ischemia. currently pt denied any chest pain, mild abdominal discomfort," bubbly" feeling, denied cough, sputum, SOB,urinary difficulty, frequency, burning ,pt stated that he drinks everyday one drink but never had major withdrawal in the past, Review of Systems: Pertinent positives as noted in history of present illness. All other systems were reviewed and are negative Allergies Coded Allergies: Penicillins (Verified Allergy, Unknown, 01/17/17) Sulfa (Sulfonamide Antibiotics) (Verified Allergy, Unknown, Hives, 01/17/17) Home Medications HOME MEDICATIONS: This was reviewed with the patient. 1. Pravastatin 20 mg p.o. daily. The patient states that this is being used as prophylaxis and he has no history of hyperlipidemia. 2. Omeprazole 20 mg p.o. daily. 3. A joint/muscle supplement with glucosamine, which he takes occasionally. 4. Cranberry 500 mg p.o. daily. 5. Multivitamin liquid p.o. daily. PMH PAST MEDICAL HISTORY: 1. Coronary artery disease, status post a single cardiac stent placed at [facility] in [place], [place] in 2012. 2. Status post pacemaker placement due to bradycardia in 2012. 3. moderate 4. Hypertension. 5. BPH with negative TURP in the past and no history of prostate cancer. SURGICAL HISTORY: 1. Rotator cuff repair in 1997. 2. Cholecystectomy August 18, 2009. 3. TURP August 19, 2009. 4. Pacemaker placement, as noted, in 2012. 5. Cardiac stent placement in 2012 at [facility] in 2012, as well as blood transfusion at that time. Social History Hx Alcohol Use: Yes Alcoholic Drinks Per Day: mixed drink a day Hx Substance Use: No Smoking Status: Never Smoker Additional Information FAMILY HISTORY: The patient states that his paternal uncle of "heart trouble." No other cardiovascular history in the family, including coronary artery disease, [place] or CVA. The patient states that his father of stomach cancer at the age of 91. The patient denies any other family history of any cancer whatsoever. SOCIAL HISTORY: Alcohol: Three to four drinks per week. Tobacco: Never. Drugs: None. pt lives alone with two cats EH Raman and her phone number is . Exam Vital Signs Vital Sign - Last Date Time Temp Pulse Resp B/P Pulse Ox O2 Delivery O2 Flow Rate FiO2 01/20/17 09:11 36.3 69 18 145/73 98 Room Air Exam NAD, comfortably laying down on the bed no JVD, MMM, no LAD RRR, nl s1, s2 no mrg CTAB, no w,c S,ND,mlid td,normoactive BS+ warm, no edema, pulses 2/2 Lab and Diagnostics Additional Diagnostics: PROCEDURE: X-RAY AIR CONTRAST UPPER GI STUDY ([id number]) INDICATIONS: ESOPHAGEAL HIATAL HERNIA COMPARISON: [facility], , CHEST 1VW (PORTABLE), 09/19/2014, 18:02. FINDINGS: KUB: Preprocedural geophysical laboratory supervisor film demonstrates a normal bowel gas pattern. No suspicious abdominal calcifications. Visualized solid organ contours appear normal. Bony structures appear unremarkable. Cholecystectomy clips. Esophagus: Esophageal mucosa is normal on air-contrast views. On single- contrast views, there is normal esophageal peristalsis. No strictures, extrinsic mass effects, or diverticula. Large paraesophageal hernia is present with roughly a three quarters of the stomach positioned within the medial left hemithorax. Stomach: The stomach is normally distensible, with normal rugal fold thickness. No mucosal masses or ulcers. Pylorus and duodenal bulb appear normal in morphology. Duodenal folds are normal in thickness as well. The attending physician was personally present in the room during the examination. IMPRESSION: 1. Large paraesophageal hernia with roughly 3/4 of the stomach positioned within the left hemithorax. No outlet obstruction identified. Dictated by: Lyle ROMAN Interpreted: Kimmie Alexis MD on 08/27/2016 at 12:06 Transcribed by: BERNARD on 08/27/2016 at 12:09 Approved by: Kimmie Alexis MD, PhD on 08/27/2016 at 16:58 Caution: Report not yet finalized and possibly incomplete! PROCEDURE: ONE DAY TREADMILL STRESS TEST. Rest and exercise myocardial perfusion SPECT with gated imaging and ejection fraction RADIOPHARMACEUTICAL: 8.1 mCi Tc-99m tetrofosmin IV at rest and 23.5 mCi Tc-99m tetrofosmin IV at peak exercise. [id number] was performed. INDICATIONS: AORTIC STENOSIS. TECHNIQUE: Radiopharmaceutical was injected at peak stress test and also at rest. SPECT images were obtained. SPECT myocardial perfusion images were displayed in short axis, horizontal long axis, and vertical long axis views. Gated images were reviewed using [employer] software. COMPARISON: None. CARDIAC STRESS: A standard Jorge Luis treadmill exercise tolerance test was performed by the patient under the supervision of attending staff. The patient exercised for 3 minutes and 36 seconds; functional aerobic impairment (ALMA) is - 10%. Hemodynamic Data: There is normal blood pressure and heart rate response to exercise stress. The patient achieved 96% of maximum predicted heart rate at peak exercise. Symptoms: The patient denied chest pain during exercise. EKG: No diagnostic EKG changes of ischemia; no ectopy. Sinus rhythm with paced beats and occasional PVCs. There were no with exercise. FINDINGS: Raw Data: There is good myocardial labeling by radiotracer. No significant motion artifacts. Left Ventricular Function: Gated images demonstrate normal left ventricle wall thickening. No segmental wall motion abnormality. No transient ischemic dilation visually. The left ventricular resting end diastolic volume is 109 mL. Left ventricular stress ejection fraction is 62%; normal values are above 45%. Myocardial Perfusion: There is normal distribution of activity in the left and right ventricular myocardium. A mild apical and septal defect is noted on stress imaging. This reverses completely with prone images thereby suggesting that it is artifactual. IMPRESSION: 1. No diagnostic electrocardiogram changes. 2. Fair exercise capacity. 3. Normal ejection fraction. 4. No areas of ischemia are identified. Dictated by: Ehsan Mendoza M.D. on 01/14/2017 at 14:50 Transcribed by: JULIO CESAR on 01/14/2017 at 20:45 Blank in EKG section of FINDINGS, thanks! Assessment & Plan 86-year-old male with history of CAD s/p stent at [facility] in 2012 s/p pacemaker placement due to bradycardia in 2012, moderate aortic stenosis, hypertension, BPH Acute, active s/p elective paraesophageal hernia repair, POA, -appreciate follow up -clear liquid diet -observation likely 2MN as recommended by . Chronic, stable HTN, resume home med CAD s/p stent and pacemaker placement due to bradycardia in 2012, moderate aortic stenosis, -pt had normal ischemic w/u recently, no further cardiac intervention indicated , will monitor on telemetry BPH, resume home med dispo:Patient will be admitted with inpatient status with expectation of inpatient therapy for more than 2 midnights diet:clear liquid diet dvt ppx:SCD Full code Time spent 65 minutes Jameson Mckay MD Jan 20, 2017 15:49
[2017-01-20] MEDS ORDERED: Acetaminophen 32.5 mg/mL 20 mL Liquid PO SCH (18:26)
[2017-01-20] MEDS: Acetaminophen 32.5 mg/mL 20 mL Liquid PO SCH (18:35)
[2017-01-21 00:04] VITALS: BP 109/63; PULSE 79; RESP 17; O2SAT 92
[2017-01-21] MEDS: Acetaminophen 32.5 mg/mL 20 mL Liquid PO SCH ×2 (00:42→06:35)
[2017-01-21] MEDS: Heparin 5,000 Unit/mL Inj SUBQ SCH ×2 (00:42→09:11)
--- NOTE | 2017-01-21 03:09 | NUR ---
Activity/pain Pt c/o pain to back, 4-5/10. Rec'd routine tylenol with very minimal effects, position changes helpful. Pt having gas pain from surgery, encouraged Pt to get up and ambulate. Ambulated down [place], 200ft, tolerated well. Stated he felt much better getting up and moving. Pain manageable. Pt repositioned in bed and sleeping Oates cath patent draining monica/brown urine to gravity, encouraged fluids. Call light in reach.
[2017-01-21 05:09] VITALS: PULSE 67
[2017-01-21] MEDS: Dextrose 5% Lactated Ringer's 1,000 ML IV SCH (05:18)
[2017-01-21] MEDS ORDERED: Pantoprazole 40 mg ER24 Tablet PO SCH (06:30)
[2017-01-21 07:00] LABS: BASOPHILS % (AUTO) 0.1 % (0-3); EOSINOPHILS % (AUTO) 0 % (0-5); MONOCYTES % (AUTO) 8.5 % (4-12); Mean Corpuscular Volume 95.5 fL (81-100); NEUTROPHILS % (AUTO) 85.4 % (40-74); Platelet Count 175 bil/L (150-400)
[2017-01-21] MEDS ORDERED: Pantoprazole 20 mg ER24 Tablet PO SCH (07:30)
[2017-01-21 07:52] LABS: Magnesium 1.5 mg/dL (1.6-2.6)
[2017-01-21] MEDS ORDERED: Ascorbic Acid 500 mg Tablet PO SCH (08:30)
[2017-01-21] MEDS ORDERED: Vitamin B Complex/Vit C Tablet PO SCH (08:30)
[2017-01-21 08:46] VITALS: BP 105/62; PULSE 69; RESP 20; O2SAT 95
[2017-01-21 08:49] VITALS: PULSE 72
--- NOTE | 2017-01-21 10:01 | PCM.DIMED ---
Discharge Instructions Date of Service Jan 21, 2017 Dates of Hospitalization Jan 20, 2017 at 17:05 Discharge Diagnosis Discharge Diagnosis s/p elective paraesophageal hernia Diet Discharge Diet: No restrictions Activity Discharge Activity: No restrictions Patient Instructions Patient Instructions You were hospitalized after elective surgery for your hernia repair. You were monitored closely in the hospital given your heart condition, remained stable. Please follow up with in 2weeks Follow-up Provider: Vanessa Leos MD Follow-up with PCP in: 2 weeks Jameson Mckay MD Jan 21, 2017 10:01
--- NOTE | 2017-01-21 10:26 | NUR ---
RD Diet ED Completed: Pureed diet education completed. Please see RD: Dietary Teaching Record under Care Activity for further information on education
--- NOTE | 2017-01-21 13:18 | PCM.DC.MED ---
Discharge Summary Date of Service Jan 21, 2017 Dates of Hospitalization Date of Hospital Admission Jan 20, 2017 at 17:05 Date of Discharge: Jan 21, 2017 Providers: Admitting Physician: Vanessa Leos MD Primary Care Physician: Shefali Luciano Attending Physician: Jameson Mckay MD Diagnosis at Time of Discharge Diagnosis at Time of Discharge s/p elective paraesophageal hernia Chronic dx HTN, CAD s/p stent and pacemaker placement due to bradycardia in 2012, moderate aortic stenosis, BPH Consultations Procedures Other Diagnostics PROCEDURE: X-RAY AIR CONTRAST UPPER GI STUDY ([id number]) INDICATIONS: ESOPHAGEAL HIATAL HERNIA COMPARISON: [facility], CR, CHEST 1VW (PORTABLE), 09/19/2014, 18:02. FINDINGS: KUB: Preprocedural product management intern film demonstrates a normal bowel gas pattern. No suspicious abdominal calcifications. Visualized solid organ contours appear normal. Bony structures appear unremarkable. Cholecystectomy clips. Esophagus: Esophageal mucosa is normal on air-contrast views. On single- contrast views, there is normal esophageal peristalsis. No strictures, extrinsic mass effects, or diverticula. Large paraesophageal hernia is present with roughly a three quarters of the stomach positioned within the medial left hemithorax. Stomach: The stomach is normally distensible, with normal rugal fold thickness. No mucosal masses or ulcers. Pylorus and duodenal bulb appear normal in morphology. Duodenal folds are normal in thickness as well. The attending physician was personally present in the room during the examination. IMPRESSION: 1. Large paraesophageal hernia with roughly 3/4 of the stomach positioned within the left hemithorax. No outlet obstruction identified. Dictated by: Lyle Huertas [facility] Interpreted: Kimmie Alexis MD on 08/27/2016 at 12:06 Transcribed by: BERNARD on 08/27/2016 at 12:09 Approved by: Kimmie Alexis MD, PhD on 08/27/2016 at 16:58 Caution: Report not yet finalized and possibly incomplete! PROCEDURE: ONE DAY TREADMILL STRESS TEST. Rest and exercise myocardial perfusion SPECT with gated imaging and ejection fraction RADIOPHARMACEUTICAL: 8.1 mCi Tc-99m tetrofosmin IV at rest and 23.5 mCi Tc-99m tetrofosmin IV at peak exercise. [id number] was performed. INDICATIONS: AORTIC STENOSIS. TECHNIQUE: Radiopharmaceutical was injected at peak stress test and also at rest. SPECT images were obtained. SPECT myocardial perfusion images were displayed in short axis, horizontal long axis, and vertical long axis views. Gated images were reviewed using [employer] software. COMPARISON: None. CARDIAC STRESS: A standard Jorge Luis treadmill exercise tolerance test was performed by the patient under the supervision of attending staff. The patient exercised for 3 minutes and 36 seconds; functional aerobic impairment (ALMA) is - 10%. Hemodynamic Data: There is normal blood pressure and heart rate response to exercise stress. The patient achieved 96% of maximum predicted heart rate at peak exercise. Symptoms: The patient denied chest pain during exercise. EKG: No diagnostic EKG changes of ischemia; no ectopy. Sinus rhythm with paced beats and occasional PVCs. There were no with exercise. FINDINGS: Raw Data: There is good myocardial labeling by radiotracer. No significant motion artifacts. Left Ventricular Function: Gated images demonstrate normal left ventricle wall thickening. No segmental wall motion abnormality. No transient ischemic dilation visually. The left ventricular resting end diastolic volume is 109 mL. Left ventricular stress ejection fraction is 62%; normal values are above 45%. Myocardial Perfusion: There is normal distribution of activity in the left and right ventricular myocardium. A mild apical and septal defect is noted on stress imaging. This reverses completely with prone images thereby suggesting that it is artifactual. IMPRESSION: 1. No diagnostic electrocardiogram changes. 2. Fair exercise capacity. 3. Normal ejection fraction. 4. No areas of ischemia are identified. Dictated by: Ehsan Mendoza M.D. on 01/14/2017 at 14:50 Transcribed by: JULIO CESAR on 01/14/2017 at 20:45 Blank in EKG section of FINDINGS, thanks! Brief History HPI obtained on 01/20 86-year-old male with history of CAD s/p stent at [facility] in 2012 s/p pacemaker placement due to bradycardia in 2012, moderate aortic stenosis, hypertension, BPH Patient presented to Hospital for elective paraesophageal hernia repair, patient underwent surgery without complication performed by Dr. Vanessa Leos on 01/20. Hospitalist service was consulted for medical management. Verbal report from , hernia was large size compressing mediastinal structures , recommended prolonged observation. Prior to surgery, pt maintained healthy lifestyle, had stress test done pre-op, which was negative for ischemia. currently pt denied any chest pain, mild abdominal discomfort," bubbly" feeling, denied cough, sputum, SOB,urinary difficulty, frequency, burning ,pt stated that he drinks everyday one drink but never had major withdrawal in the past, Hospital Course 86-year-old male with history of CAD s/p stent at [facility] in 2012 s/p pacemaker placement due to bradycardia in 2012, moderate aortic stenosis, hypertension, BPH Acute dx s/p elective paraesophageal hernia repair, pt was admitted after elective paraesophageal hernia repair for close observation of his cardiac condition, . patient remained asymptomatic, no event on telemetry observed. pt tolerated clear liquid diet, deemed safe for d/c Chronic dx HTN, resumed home med CAD s/p stent and pacemaker placement due to bradycardia in 2012, moderate aortic stenosis, pt had normal ischemic w/u recently, no further cardiac intervention indicated, remained stable throughout hospital course. BPH, resume home med Exam Vital Signs (Last) Date Time Temp Pulse Resp B/P Pulse Ox O2 Delivery O2 Flow Rate FiO2 01/21/17 08:49 72 01/21/17 08:46 36.7 20 105/62 95 Room Air 01/20/17 16:35 2 Exam pt was examined on the day of d/c Test 01/20/17 13:52 01/21/17 06:25 Urine Color Bloody (YELLOW) Urine Appearance Turbid (CLEAR,HAZY) Urine pH 6.0 (5.0-8.0) Urine Specific Strong 1.015 (1.003-1.035) Urine Protein Tracemg/dL (NEG,TRACE) Urine Glucose (UA) Negativemg/dL (NEGATIVE) Urine Ketones Negativemg/dL (NEGATIVE) Urine Occult Blood Large (NEGATIVE) Urine Nitrite Negative (NEGATIVE) Urine Bilirubin Negative (NEGATIVE) Urine Urobilinogen Normalmg/dL (NORMAL) Urine Leukocyte Esterase Negative (NEGATIVE) Urine RBC Packed/hpf (0-2) Urine WBC 0-5/hpf (0-5) Urine Epithelial Cells Occasional/hpf (NONE-MOD) Urine Crystals None seen (NONE SEEN) Urine Bacteria Few/hpf (NONE-FEW) Urine Hyaline Casts None/lpf (NONE) Urine Granular Casts None seen (NONE SEEN) Urine Waxy Casts None seen (NONE SEEN) Urine Red Blood Cell Casts None seen (NONE SEEN) Urine White Blood Cell Casts None seen (NONE SEEN) Urine Mucus None seen (None Seen) Urine Trichomonas None seen (NONE SEEN) Urine Yeast None (NONE SEEN) Urinalysis Comment None Urine Culture Reflexed Not indicated White Blood Count 9.6th/mm3 (3.8-10.1) Red Blood Count 4.44mil/mm3 (4.40-5.80) Hemoglobin 14.2g/dL (13.8-17.2) Hematocrit 42.4% (41.0-50.0) Mean Corpuscular Volume 95.5fL (81-100) Mean Corpuscular Hemoglobin 32.0pg (27.0-35.0) Mean Corpuscular Hemoglobin Concent 33.5% (32.0-37.0) Red Cell Distribution Width 13.2% (12.3-15.4) Platelet Count 175bil/L (150-400) Neutrophils (%) (Auto) 85.4% (40-74) Lymphocytes (%) (Auto) 5.7% (14-46) Monocytes (%) (Auto) 8.5% (4-12) Eosinophils (%) (Auto) 0% (0-5) Basophils (%) (Auto) 0.1% (0-3) Sodium Level 142mEq/L (134-144) Potassium Level 4.6mEq/L (3.5-5.2) Chloride Level 103mEq/L (97-108) Carbon Dioxide Level 24mmol/L (18-29) Blood Urea Nitrogen 18mg/dL (8-27) Creatinine 0.89mg/dL (0.76-1.27) Estimat Glomerular Filtration Rate 86mL/min (>59) Glucose Level 165mg/dL (60-99) Calcium Level 8.6mg/dL (8.5-10.1) Magnesium Level 1.5mg/dL (1.6-2.6) Total Bilirubin 0.5mg/dL (0.0-1.2) Aspartate Amino Transf (AST/SGOT) 34U/L (0-50) Alanine Aminotransferase (ALT/SGPT) 27U/L (0-44) Alkaline Phosphatase 68U/L (25-160) Total Protein 6.2g/dL (6.4-8.4) Albumin 4.2g/dL (3.4-5.0) Discharge Medications Discharge Medications ([Iron ER]) 45 MG PO DAILY (Reported) Amlodipine (Norvasc) 5 Mg Tablet 5 MG PO DAILY (Reported) Ascorbic Acid (Vitamin C) 1,000 Mg Tab.chew 1,000 MG PO DAILY (Reported) Aspirin (Aspirin) 325 Mg Tablet 325 MG PO DAILY (Reported) Atorvastatin (Lipitor) 20 Mg Tablet 20 MG PO HS Prescribed by: STERLING DOUGLASS DO Cholecalciferol (Vitamin D3) (Vitamin D3) 5,000 Unit Capsule 5,000 UNIT PO DAILY (Reported) Cranberry Fruit (Cranberry) 500 Mg Tab.chew 500 MG PO DAILY (Reported) Cyanocobalamin/FA/Pyridoxine (B Complex-Folic Acid Tablet) 1 Each Tablet 1 EACH PO DAILY (Reported) Lisinopril (Lisinopril) 10 Mg Tablet 10 MG PO DAILY (Reported) Omeprazole Magnesium (Omeprazole) 20 Mg Capsule.dr 20 MG PO DAILY (Reported) Followup Plan Disposition: home Discharge Diet: No restrictions Discharge Activity: No restrictions Patient Instructions You were hospitalized after elective surgery for your hernia repair. You were monitored closely in the hospital given your heart condition, remained stable. Please follow up with in 2weeks Follow-up Provider: Vanessa Leos MD Follow-up with PCP in: 2 weeks Time spent 65min Jameson Mckay MD Jan 21, 2017 13:18
--- NOTE | 2017-01-21 13:54 | NUR ---
discharged home with daughter, will have f/u appt with Dr Leos in 2 weeks, pt was able to void without any difficulty after removing catheter, will follow a pureed diet as recommended by RD until otherwise directed, pt taking fluids and full liquid diet without difficulty, denies nausea, ambulating independently, states he feels comfortable and refused pain meds, even Tylenol
--- NOTE | 2017-01-21 14:00 | NUR ---
Social Work: Attempted Initial Assessment/Discharge/Multidisciplinary Rounds D: EMR reviewed. Pt is an 86 y/o male admitted [facility] for paraesophageal hernia per H&P. No readmit risk score assigned. Pt's insurance is [employer] and [employer]. PCP is FISH Stewart. NOK is daughter Cris Raman [phone]. SW attempted to meet with pt prior to discharge to complete assessment. Pt was not available - being seen by other provider. Pt discharged prior to assessment. Pt was discussed in multidisciplinary rounds, per MD, pt medically stable for discharge pending surgical sign off and discharge of [facility]. Pt anticipated to discharge later this afternoon. SW discussed pt's capacity for self-care and potential concerns for discharge - no SW needs identified. No MD orders received or anticipated. Pt is independent at baseline and has family support. A: Pt reported to be independent at baseline and has ample family support - no discharge needs indicated in multidisciplinary rounds P: Pt discharged home today via POV. No SW needs identified in multidisciplinary rounds. No MD orders received. ELOISA Maxwell
== END 2017-01-21 13:17 | disposition home or self-care (01) ==
LOC: SAS 07:59 → OSC 17:05
PROVIDERS: ADMIT Surgery; ATTEND Surgery
DX: K44.9 Diaphragmatic hernia without obstruction or gangrene (principal); K21.9 Gastro-esophageal reflux disease without esophagitis; T83.83XA Hemorrhage due to genitourinary prosthetic devices, implants and grafts, initial encounter; I25.10 Atherosclerotic heart disease of native coronary artery without angina pectoris; Z95.5 Presence of coronary angioplasty implant and graft; Z95.0 Presence of cardiac pacemaker; I10 Essential (primary) hypertension; I35.0 Nonrheumatic aortic (valve) stenosis; I71.4 Abdominal aortic aneurysm, without rupture
CPT/HCPCS: 36415; 43281; 51702; 80048; 80053; 81000; 83735; 85025; 85027; J0690; J1100; J1644; J2370; J2405; J2704; J2710; J2765; J3010; J7120

== ENCOUNTER 2017-01-31 13:40 | Inpatient (IN) | payer MEDICARE, OTHER ==
[~2017-01-31] VITALS: Ht 170.2 cm; Wt 67.1 kg
[~2017-01-31 13:40] MED LIST changes: -CeFAZolin Inj 2 GM in IV Premix 1 EACH IV ONE; -Lactated Ringer's 1,000 ML IV SCH
[2017-01-31 13:44] VITALS: BP 121/67; PULSE 90; RESP 14; O2SAT 96
--- NOTE | 2017-01-31 14:56 | ED.REPORT ---
HPI-Abd Pain M 40 and Over Date of Service Jan 31, 2017 ED Provider: Dr. Galdamez The pt is an 86 y/o male with a hx of HTN, CAD (s/p pacemaker), and BPH (s/p prostatectomy) who presents to the ED complaining of abdominal pain, onset 2 days ago. The pt had a paraesophageal hernia repair 11 days ago and has been doing fine until this sudden onset of pain. He has been on a liquid diet since the surgery. Associated sx include frontal headache, malaise, diaphoresis, bloating, nausea and diarrhea. He denies fever, chills, abdominal pain with palpation, vomiting. The pt took an aspirin a couple of days ago but stopped after he started experiencing hematuria. He states he has been bleeding easily since his prostatectomy. Nursing Notes Stated Complaint: POST SURGERY ABD PAIN,DIZZY Chief Complaint: Male Abdominal Pain Nursing Notes Reviewed: Yes Allergies: Coded Allergies: Penicillins (Verified Allergy, Unknown, 01/17/17) Sulfa (Sulfonamide Antibiotics) (Verified Allergy, Unknown, Hives, 01/17/17) Scheduled ([Iron ER]) 45 MG PO DAILY Amlodipine (Norvasc) 5 Mg Tablet 5 MG PO DAILY Ascorbic Acid (Vitamin C) 1,000 Mg Tab.chew 1,000 MG PO DAILY Aspirin (Aspirin) 325 Mg Tablet 325 MG PO DAILY Atorvastatin (Lipitor) 20 Mg Tablet 20 MG PO HS Cholecalciferol (Vitamin D3) (Vitamin D3) 5,000 Unit Capsule 5,000 UNIT PO DAILY Cranberry Fruit (Cranberry) 500 Mg Tab.chew 500 MG PO DAILY Cyanocobalamin/FA/Pyridoxine (B Complex-Folic Acid Tablet) 1 Each Tablet 1 EACH PO DAILY Lisinopril (Lisinopril) 10 Mg Tablet 10 MG PO DAILY Omeprazole Magnesium (Omeprazole) 20 Mg Capsule.dr 20 MG PO DAILY General Time Seen by MD: 14:56 Chief Complaint Abdominal pain Hx Obtained From: Patient Arrived By: Walk-in Sudden in Onset?: Yes Location: : Abdomen upper Quality: Painful Radiation: : Does not radiate Severity: Current: Mild Severity: Maximum: Moderate Recent Healthcare: Recent doctor visit Past Medical History Past Medical History Chronic anemia Esophageal stricture BPH (s/p prostatectomy) Reports: Coronary artery disease, GERD, Hyperlipidemia, Hypertension Past Surgical History Stents Left shoulder surgery Lasik TUR Reports: Cholecystectomy, Tonsillectomy Reports: Pacemaker insertion Smoking History Never Smoker Social History Other Social History: Good social support Ambulatory Status Independent Review of Systems Reports: bloating Denies: abdominal pain with palpation Constitutional: Reports: Malaise, Denies: Chills, Fever GI: Reports: Abdominal pain, Denies: Vomiting Complete sys rev & neg: except as marked. Skin: Reports Diaphoresis Neurologic: Reports: Headache Physical Exam Initial Vital Signs Vital Signs (First) Date Time Temp Pulse Resp B/P Pulse Ox O2 Delivery O2 Flow Rate FiO2 01/31/17 13:44 37.1 90 14 121/67 96 Room Air Initial VS: Reviewed Head / Eyes: Atraumatic, Normocephalic Neck: Supple, Non-tender, Full range of motion Extremities: Vascular intact, Neuro intact, No swelling, No tenderness Skin: Warm, Dry, No cyanosis Neurologic: Alert, Oriented, Nonfocal General/Constitutional: Awake, Alert, Well appearing, Cooperative Respiratory / Chest: Atraumatic, Breath sounds NL, Breath sounds = bilat, No respiratory distress, No rales, No rhonchi, No wheezing Cardiovascular: Heart rate NL, Regular rhythm, Heart sounds NL, No gallop, No murmurs, No rubs Abdomen: Atraumatic, Soft, No guarding, No rebound Tenderness/Guarding/Rebound: Positive: Tender RUQ... (Mild) Back: Atraumatic, Full range of motion, Painless range of motion Interpretation & Diagnostics Lab Results Interpretation Result Diagram: 01/31/17 1513 01/31/17 1513 Test 01/31/17 15:10 01/31/17 15:13 01/31/17 15:33 Hold Purple Top Tube Received (Received) Hold Blue Top Tube Received (Received) Hold Red Top Tube Received (Received) Hold Freeborn Top Tube Received (Received) Hold Anne Top Tube Received (Received) White Blood Count 26.6th/mm3 (3.8-10.1) Red Blood Count 4.57mil/mm3 (4.40-5.80) Hemoglobin 14.7g/dL (13.8-17.2) Hematocrit 42.7% (41.0-50.0) Mean Corpuscular Volume 93.4fL (81-100) Mean Corpuscular Hemoglobin 32.2pg (27.0-35.0) Mean Corpuscular Hemoglobin Concent 34.4% (32.0-37.0) Red Cell Distribution Width 12.7% (12.3-15.4) Platelet Count 240bil/L (150-400) Neutrophils (%) (Auto) 89.5% (40-74) Lymphocytes (%) (Auto) 3.1% (14-46) Monocytes (%) (Auto) 7.0% (4-12) Eosinophils (%) (Auto) 0% (0-5) Basophils (%) (Auto) 0.1% (0-3) Prothrombin Time 11.7sec (8.1-12.5) Prothromb Time International Ratio 1.09ratio Sodium Level 137mEq/L (134-144) Potassium Level 4.3mEq/L (3.5-5.2) Chloride Level 98mEq/L (97-108) Carbon Dioxide Level 20mmol/L (18-29) Blood Urea Nitrogen 17mg/dL (8-27) Creatinine 0.88mg/dL (0.76-1.27) Estimat Glomerular Filtration Rate 87mL/min (>59) Glucose Level 121mg/dL (60-99) Lactic Acid Level 1.4mmol/L (0.4-2.0) Calcium Level 8.9mg/dL (8.5-10.1) Magnesium Level 1.6mg/dL (1.6-2.6) Total Bilirubin 0.8mg/dL (0.0-1.2) Aspartate Amino Transf (AST/SGOT) 16U/L (0-50) Alanine Aminotransferase (ALT/SGPT) 11U/L (0-44) Alkaline Phosphatase 94U/L (25-160) Total Protein 7.1g/dL (6.4-8.4) Albumin 3.7g/dL (3.4-5.0) Lipase 16U/L (13-60) Urine Color Yellow (YELLOW) Urine Appearance Hazy (CLEAR,HAZY) Urine pH 5.5 (5.0-8.0) Urine Specific Gaston 1.025 (1.003-1.035) Urine Protein 30mg/dL (NEG,TRACE) Urine Glucose (UA) Negativemg/dL (NEGATIVE) Urine Ketones 15mg/dL (NEGATIVE) Urine Occult Blood Large (NEGATIVE) Urine Nitrite Positive (NEGATIVE) Urine Bilirubin Negative (NEGATIVE) Urine Urobilinogen Normalmg/dL (NORMAL) Urine Leukocyte Esterase Moderate (NEGATIVE) Urine RBC 3-10/hpf (0-2) Urine WBC 11-50/hpf (0-5) Urine Epithelial Cells None/hpf (NONE-MOD) Urine Crystals None seen (NONE SEEN) Urine Bacteria Many/hpf (NONE-FEW) Urine Hyaline Casts None/lpf (NONE) Urine Granular Casts None seen (NONE SEEN) Urine Waxy Casts None seen (NONE SEEN) Urine Red Blood Cell Casts None seen (NONE SEEN) Urine White Blood Cell Casts None seen (NONE SEEN) Urine Mucus Present (None Seen) Urine Trichomonas None seen (NONE SEEN) Urine Yeast None (NONE SEEN) Urinalysis Comment None Urine Culture Reflexed Indicated ECG Interpretation ECG Interpretation: Ventricular-paced complexes. Rate 79. Time: 15:50 Interpreted by: ED physician X-Ray Chest Interpretation Chest Xray Interpretation: IMPRESSION: Stable chest. No acute cardiopulmonary process is evident. Dictated by: Jovan Aviles M.D. on 01/31/2017 at 14:27 Approved by: Jovan Aviles M.D. on 01/31/2017 at 14:39 View: Portable, 1 view Interpretation / Wet Read by: Interpret - Radiologist CT Abd / Pelvis Interpretation IMPRESSION: 1. Large fluid collection to the right of the distal esophagus above the gastroesophageal junction likely represents a postoperative seroma or hematoma. However, superimposed developing abscess or esophageal leak cannot be excluded and clinical correlation is recommended. An esophagram would be helpful to exclude a focal esophageal leak. 2. Postoperative changes related to Richa fundoplication. No recurrent hiatal hernia is evident. Mild edema within the mesentery surrounding the upper stomach is present without an intraperitoneal loculated fluid collection evident. 3. Markedly abnormal bladder and prostate. The prostate is diffusely enlarged and heterogeneous. Thickening of the urinary bladder wall probably is related to chronic bladder outlet obstruction. However, chronic cystitis or a neoplastic process to either the bladder and/or the prostate cannot be excluded. There are bladder diverticula present. 4. Fat-containing left inguinal hernia. Dictated by: Jovan Aviles M.D. on 01/31/2017 at 15:27 Approved by: Jovan Aviles M.D. on 01/31/2017 at 15:37 Study type: Abdominal CT IV contrast Interpretation / Wet Read by: Interpret - Radiologist Re-Eval/Medical Decision Source of Hx: Old records Time of Eval: 16:44 Re-Evaluation/Progress Note: Rechecked pt. Discussed lab results, imaging results,diagnosis and plan to admit. Pt understands and agrees with the plan for admission. All questions addressed. Consultation #1: Referral / Consult Name: Vanessa Leos MD Consulted With: Surgeon Call Returned at: 16:47 Quality Assurance Supervisor Trim: Will see patient, Agrees with eval, Agrees with plan Note: Dr. Leos will consult Consultation #2: Referral / Consult Name: Randy Villegas MD Consulted With: Hospitalist Call Returned at: 17:14 Quality Assurance Supervisor Trim: Will see patient, Agrees with eval, Agrees with plan, Accepts admit Counseled Regarding: Diagnosis, Lab results, Need for admission Discharge & Departure Primary Impression: UTI (urinary tract infection) Urinary tract infection type: site unspecified Disposition: ADMITTED TO HOSPITAL Vital Signs - All Vital Signs Date Time Temp Pulse Resp B/P Pulse Ox O2 Delivery O2 Flow Rate FiO2 01/31/17 16:50 37.4 82 18 129/64 95 Room Air 01/31/17 13:44 37.1 90 14 121/67 96 Room Air )( All Prior VS Reviewed: Yes Referrals: Shefali Luciano (PCP) Scribe Attestation Portions of this note were transcribed by Emily Huitron. I,, personally performed the history,physical exam and medical decision-making;I reviewed and confirmed the accuracy of the information in the transcribed note. Signed by Maximo Herbert. 01/31/17 copies to: Shefali Luciano Timothy S DO Jan 31, 2017 14:56 Emily Huitron Jan 31, 2017 15:07
[2017-01-31] MEDS ORDERED: 0.9% Sodium Chloride 1,000 ML IV ONE (15:07)
[2017-01-31] MEDS ORDERED: Ondansetron 2 mg/mL 2 mL Inj IVPUSH PRN ×3 (15:10→17:25)
[2017-01-31 15:16] LABS: BASOPHILS % (AUTO) 0.1 % (0-3); EOSINOPHILS % (AUTO) 0 % (0-5); Mean Corpuscular Hemoglobin 32.2 pg (27.0-35.0); Mean Corpuscular Volume 93.4 fL (81-100); NEUTROPHILS % (AUTO) 89.5 % (40-74); Platelet Count 240 bil/L (150-400)
[2017-01-31 15:20] LABS: INR 1.09 ratio
[2017-01-31 15:28] LABS: Magnesium 1.6 mg/dL (1.6-2.6)
--- NOTE | 2017-01-31 15:41 | DRSVH ---
PROCEDURE: X-RAY CHEST ONE VIEW, PORTABLE ([id number]) INDICATIONS: generalized weakness, recent surgery TECHNIQUE: One view of the chest was acquired. COMPARISON: [facility], , CHEST 1VW (PORTABLE), 09/19/2014, 18:02. FINDINGS: Surgical changes and devices: A dual-chamber cardiac pacer/defibrillator apparatus is noted. Postope rative changes of the left shoulder are again noted. Lungs and pleura: No pleural effusions or pneumothorax. Lungs are clear. Mediastinum: Mediastinal contours appear normal. Heart size is normal. There is aortic atheroscler osis. Bones and chest wall: No suspicious bony lesions. Overlying soft tissues appear unremarkable. IMPRESSION: Stable chest. No acute cardiopulmonary process is evident. Dictated by: Jovan Aviles M.D. on 01/31/2017 at 14:27 Approved by: Jovan Aviles M.D. on 01/31/2017 at 14:39
[2017-01-31 15:50] LABS: APPEARANCE,URINE HAZY (CLEAR,HAZY); COLOR,URINE YELLOW (YELLOW); OCCULT BLOOD,URINE LARGE (NEGATIVE); PH,URINE 5.5 (5.0-8.0)
[2017-01-31 15:51] LABS: UROBILINOGEN,URINE NORMAL (NORMAL)
[2017-01-31] MEDS ORDERED: cefTRIAXone Inj 2,000 MG in Dextrose 5% Minibag Plus 50 ML IV ONE (16:05)
--- NOTE | 2017-01-31 16:38 | DRSVH ---
PROCEDURE: CT ABDOMEN AND PELVIS WITH CONTRAST ([id number]) INDICATIONS: upper abd discomfort post surgery TECHNIQUE: After the administration of oral and intravenous contrast, 5 mm thick sections acquired from the diap hragms to the symphysis. 5 mm thick coronal and sagittal reformats were performed. For radiation do se reduction, the following was used: automated exposure control, adjustment of mA and/or kV accordi ng to patient size. COMPARISON: None. FINDINGS: Image quality: Diagnostic. ABDOMEN: Lung bases: Lung bases are clear. The heart is borderline prominent in size. No pericardial effusi on is evident. Solid organs: The patient has had a previous cholecystectomy. There is minimal intrahepatic biliary dilatation. No significant enlargement of the common bile duct is present. There are scattered foci of low attenuation within the left hepatic lobe with additional scattered calcified granulomas ident ified, which are too small to adequately characterize, but probably represent simple cysts. The sple en, adrenals, and pancreas are within normal limits. The kidneys are normal in size. There is no hy dronephrosis. Peritoneum and bowel: Postoperative changes are present compatible with the patient's history of a Ni ssen fundoplication. There is no recurrent hernia. However, there is a large fluid collection ident ified to the right of the distal esophagus, which measures at least 5.3 x 5.6 x 7.6 cm and is noted t o demonstrate a density of 18 Hounsfield units. This fluid collection is located within the posterio r mediastinum and extends to the level of the esophageal hiatus. Edematous changes within the upper abdomen adjacent to the stomach at the level of the Richa fundoplication is present. No intra-abdom inal/retroperitoneal abnormalities are evident. Otherwise, the remainder of the stomach, duodenum, a nd small bowel loops are within normal limits. There is moderate residual stool within the colon. A reas of mild colonic diverticulosis are present. No evidence to suggest acute diverticulitis is appr eciated. No free fluid, loculated fluid collection or free air is appreciated within the abdomen. Nodes and vessels: No retroperitoneal or mesenteric adenopathy. Aorta and inferior vena cava are no rmal in caliber. There is aortic atherosclerosis. Bones: Age-appropriate degenerative changes of the imaged thoracolumbar spine are present. No acute fractures or suspicious osseous lesions are present. PELVIS: Genitourinary: Marked thickening of the urinary bladder wall is identified with areas of mild surroun ding edema within the adjacent mesentery. There are at least 2 bladder diverticula. The largest is located along the posterior aspect of the bladder to the left of midline, measuring up to approximate ly 4 cm in diameter (image 71, series 2). A smaller peripherally enhancing diverticulum along the fu ndal region of the bladder is identified to the right of midline measuring at least 1.7 cm, which dem onstrates peripheral enhancement. The prostate gland is markedly enlarged and extensively heterogene ous, measuring at least 5.1 x 6.1 cm. Miscellaneous: No free fluid, loculated fluid collection or free air is seen within the pelvis. Ther e is a moderate-sized fat containing left inguinal hernia. No pelvic lymphadenopathy is appreciated. Bones: No suspicious bony lesions. No acute pelvic fractures are evident. There are moderate degen erative changes of the sacroiliac joints and bilateral hips. IMPRESSION: 1. Large fluid collection to the right of the distal esophagus above the gastroesophageal junction l ikely represents a postoperative seroma or hematoma. However, superimposed developing abscess or eso phageal leak cannot be excluded and clinical correlation is recommended. An esophagram would be help ful to exclude a focal esophageal leak. 2. Postoperative changes related to Richa fundoplication. No recurrent hiatal hernia is evident. Mild edema within the mesentery surrounding the upper stomach is present without an intraperitoneal l oculated fluid collection evident. 3. Markedly abnormal bladder and prostate. The prostate is diffusely enlarged and heterogeneous. T hickening of the urinary bladder wall probably is related to chronic bladder outlet obstruction. How ever, chronic cystitis or a neoplastic process to either the bladder and/or the prostate cannot be ex cluded. There are bladder diverticula present. 4. Fat-containing left inguinal hernia. Dictated by: Jovan Aviles M.D. on 01/31/2017 at 15:27 Approved by: Jovan Aviles M.D. on 01/31/2017 at 15:37
[2017-01-31 16:50] VITALS: BP 129/64; PULSE 82; RESP 18; O2SAT 95
[2017-01-31] MEDS ORDERED: Alum-Mag Hydrox-Simeth 30 mL Suspension PO PRN ×2 (17:20→17:25)
[2017-01-31] MEDS ORDERED: Polyethylene Glycol (PEG) 17 Gm Powder PO PRN (17:25)
--- NOTE | 2017-01-31 17:41 | PCM.PNSURG ---
Subjective Visit Information: Reason for Visit UTI Surgery/Surgery Date Post-Op Day # Date of Admission: Jan 31, 2017 at 17:36 Hospital Day # Subjective: 86-year-old man who underwent laparoscopic paraesophageal hernia repair 11 days ago. He returned to the emergency room today because he was having frontal headache, malaise, diaphoresis, bloating, nausea and diarrhea. He has been tolerating a full liquid diet since surgery. He was evaluated in the emergency department and was found to have a UTI. CT scan of the abdomen and pelvis revealed a fluid collection in the mediastinum where his stomach used to be. Objective Vital Sign- Last 8 Hours Date Time Temp Pulse Resp B/P Pulse Ox O2 Delivery O2 Flow Rate FiO2 01/31/17 16:50 37.4 82 18 129/64 95 Room Air 01/31/17 13:44 37.1 90 14 121/67 96 Room Air General: Alert, Oriented X3, Cooperative, No Acute Distress Abdomen: Soft, Non-tender, Other (incisions are clean, dry, intact, and Steri- Strips are still in place) Result Diagram: 01/31/17 1513 01/31/17 1513 Assessment & Plan Impression 86-year-old man status post laparoscopic paraesophageal hernia repair. I have reviewed the fluid collection on the CT scan and evaluated him clinically. The fluid appears to be a seroma in the location where his stomach was prior to surgery. Based on his overall medical picture, I am not concerned about abscess or perforation of the stomach or esophagus. Problems: Plan -Agree with treatment of urinary tract infection -If and when a diet is ordered for this patient, he should be on full liquids until 2 weeks after the surgery, which will be on 02/03/2017. Vanessa Leos MD Jan 31, 2017 17:41
[2017-01-31] MEDS: 0.9% Sodium Chloride 1,000 ML IV SCH (18:02)
--- NOTE | 2017-01-31 18:36 | PCM.HPMED ---
Subjective Date of Service Jan 31, 2017 Primary Provider: Admitting Physician: Randy Villegas MD Primary Care Physician: Shefali Luciano Attending Physician: Randy Villegas MD Chief Complaint: Patient is an 86-year-old male with a medical history significant for CAD, hypertension, BPH, and cholecystectomy recently underwent paraesophageal hernia repair on 01/20/2017, was doing well until 2 days ago on patient reports complaints of lower abdominal pain with associated malaise and diarrhea. History of Present Illness: Patient reported pain started about 2 days ago and felt significantly weak. Patient lost appetite, but denies any nausea, vomiting, coughing, or upper abdominal pain. He further denies any dysphagia. He endorse taking liquids without any difficulty. Then today, patient's symptoms seems to worsen, in addition patient started having diarrhea this morning. He was thus brought into the emergency room for evaluation. Patient denies any lower back pain, fevers, chills, night sweats. On review of system, patient states mild bilateral frontal headaches that has nearly resolved since arrival to the ED. The ED, patient vital remained stable, temperature 37.4, pulse 82, respiratory 18, blood pressure 129/64, pulse ox 95%. Lab CBC significant for white blood cells 26.6, with neutrophils of 89%. A CT abdomen pelvis with contrast was done demonstrating a large collection of fluids 5.35.67.6 cm in the right of distal esophagus concerning for seroma, hematoma, possible superimpose developing abscess or esophageal leak. Surgery was consulted and evaluated patient, noted fluid collection less likely be infected or resultant of a perforation of the stomach or esophagus. Patient instead, likely UA showed large occult blood, urine nitrate, and urine WBC 1150, many urine bacteria. Review of Systems: A comprehensive review of systems was conducted with the patient and found to be negative except as above in the History of Present Illness. Allergies Coded Allergies: Penicillins (Verified Allergy, Unknown, 01/17/17) Sulfa (Sulfonamide Antibiotics) (Verified Allergy, Unknown, Hives, 01/17/17) Home Medications Amlodipine 5 mg daily Aspirin 305 mg daily Atorvastatin 20 mg nightly Vitamin D3 5000 units daily Vitamin B complex 1 tablet daily Omeprazole 20 mg qd PMH Coronary artery disease Symptomatic bradycardia Moderate aortic stenosis Hypertension BPH Surgical History Coronary artery stenting 2012 Status post pacemaker 2012 TURP 08/19/2009 Cholecystectomy 08/18/2009 Rotator cuff repair 1997 Family History Uncle with heart disease Denies any family history of coronary disease, AR, or CVA Social History Hx Alcohol Use: Yes Hx Substance Use: No Smoking Status: Never Smoker Exam Vital Signs Vital Sign - Last Date Time Temp Pulse Resp B/P Pulse Ox O2 Delivery O2 Flow Rate FiO2 01/31/17 16:50 37.4 82 18 129/64 95 Room Air Exam General: No acute distress, appropriately interactive HEENT: Normocephalic, atraumatic. PERRLA, EOMI, Anicteric sclerae, moist conjunctivae. Neck: No JVD, No bruits. No lymphadenopathy or thyromegaly. Cardiovascular: Regular rate and rhythm with 3+ systolic heart murmurs, no rubs , or gallops appreciated Pulmonary: b/l air sound with no crackles, wheezes, or rhonchi. no use of accessory muscles. Abdomen: +Bowel sound, Soft, nontender, nondistended. Mild suprapubic tenderness, no costophrenic angle tenderness Extremities: No clubbing or cyanosis, no lymphedema, no b/l lower leg edema Skin: Normal temperature, turgor, and texture; no rash. No visualized skin ulcer. Neurological: CN II-VII grossly intact, moving equally on all 4 extremities Psychiatric: Normal mood and affect. AOx3 Lab and Diagnostics Result Diagram: 01/31/17 1513 01/31/17 1513 Assessment & Plan Patient is an 86-year-old male with a medical history significant for CAD, hypertension, BPH, and cholecystectomy who recently underwent Niesen fundoplication on 01/20/2017 came in with lower abdominal pain, found to have leukocytosis with a likely source of infection UTI. # Complicated urinary tract infection, present on admission, active -UA positive for nitrates, bacteria, and WBC -Await urine culture and sensitivity -Continue ceftriaxone every 24 hours # Leukocytosis -Likely UTI, possible superimposing right distal esophagus abscess, or C. difficile -Antibiotics as below -Blood and urine cultures sent # Status post recent Niesen fundoplication -CT with contrast with large fluid collection measuring 5.35.67.6 -Patient and asymptomatic, no dysphagia, nausea or vomiting, or upper abdominal pain -Continue to monitor -Consider esophageal Gastrografin should patient exhibited dysphagic -Surgery has been consulted and following # Diarrhea -Concern for C. difficile given recent hospitalization -Stool C. difficile PCR -Hydrated with 100 mL/hr normal saline #cEssential hypertension -Restart home amlodipine 5 mg daily # Coronary artery disease -Restart aspirin and atorvastatin CODE STATUS: Full code Antinausea medication when necessary Bowel regimen when necessary Patient Status: inpatient Resuscitation Status: CPR: Attempt Resuscitation copies to: Shefali Luciano Phuc H DO Jan 31, 2017 18:36 Randy Villegas MD Jan 31, 2017 20:38
[2017-01-31 18:37] VITALS: BP 119/56; PULSE 81; RESP 16; O2SAT 94
--- NOTE | 2017-01-31 18:40 | NUR ---
Admit Pt admitted to [facility] [id number] at 1840. Pt A&Ox3. KEATING. Able to transfer from stretcher to bed. Dinner ordered and pt eating at bedside. Denies nausea and pain. SBA to the bathroom. NS at 100. Pt oriented to room and call light. To give report to restaurant shift leader RN.
[2017-01-31] MEDS ORDERED: FERR-83 PO (18:58)
[2017-01-31] MEDS ORDERED: ASCO250T7 PO (18:59)
[2017-01-31 22:31] VITALS: BP 120/58; PULSE 71; RESP 16; O2SAT 95
--- NOTE | 2017-02-01 01:13 | NUR ---
Activity Patient alert and oriented x3. No complaints of pain or dizziness, or malaise. Patient answered all assessment questions appropriately. VSS. Call light within reach. Care continues.
[2017-02-01] MEDS: Heparin 5,000 Unit/mL Inj SUBQ SCH ×3 (01:27→17:46)
[2017-02-01] MEDS: 0.9% Sodium Chloride 1,000 ML IV SCH (02:48)
[2017-02-01 05:46] LABS: BASOPHILS % (AUTO) 0.1 % (0-3); EOSINOPHILS % (AUTO) 0 % (0-5); MONOCYTES % (AUTO) 7.7 % (4-12); Mean Corpuscular Hemoglobin 32.2 pg (27.0-35.0); Mean Corpuscular Volume 95.5 fL (81-100); NEUTROPHILS % (AUTO) 88.8 % (40-74); Platelet Count 207 bil/L (150-400)
[2017-02-01 06:18] VITALS: BP 98/56; PULSE 67; RESP 16; O2SAT 96
[2017-02-01 08:59] VITALS: BP 99/57; PULSE 77; RESP 18; O2SAT 96
--- NOTE | 2017-02-01 12:45 | PCM.PNMED ---
Subjective Date of Service Feb 01, 2017 Subjective Lower abdominal pain improving. Afebrile. Diarrhea improving. C. difficile negative. Exam Vital Signs Vital Sign - Last Date Time Temp Pulse Resp B/P Pulse Ox O2 Delivery O2 Flow Rate FiO2 02/01/17 08:59 36.4 77 18 99/57 96 Room Air Intake and Output 01/31/17 01/31/17 02/01/17 Cumulative From/Thru 15:00 23:00 07:00 01/31/17 13:44 - 02/01/17 06:18 Intake Total 1400 ml 1474 ml 2874 ml Output Total 0 ml 650 ml 650 ml Balance 1400 ml 824 ml 2224 ml Intake Oral 400 ml 400 ml 800 ml IV Total 1000 ml 1074 ml 2074 ml Output Urine Total 0 ml 650 ml 650 ml # Voids 3 3 # Bowel Movements 0 0 0 Exam General: No acute distress, appropriately interactive HEENT: Normocephalic, atraumatic. PERRLA, EOMI, Anicteric sclerae, moist conjunctivae. Neck: No JVD, No bruits. No lymphadenopathy or thyromegaly. Cardiovascular: Regular rate and rhythm with 3+ systolic heart murmurs, no rubs , or gallops appreciated Pulmonary: b/l air sound with no crackles, wheezes, or rhonchi. no use of accessory muscles. Abdomen: +Bowel sound, Soft, nontender, nondistended. Mild suprapubic tenderness, no costophrenic angle tenderness Extremities: No clubbing or cyanosis, no lymphedema, no b/l lower leg edema Skin: Normal temperature, turgor, and texture; no rash. No visualized skin ulcer. Neurological: CN II-VII grossly intact, moving equally on all 4 extremities Psychiatric: Normal mood and affect. AOx3 IVs and Medications Medications Reviewed: Medications were reviewed in detail Lab and Diagnostics Result Diagram: 02/01/1751902/01/17519 X-Rays, CTs and MRIs PROCEDURE: CT ABDOMEN AND PELVIS WITH CONTRAST (PNL-7102) INDICATIONS: upper abd discomfort post surgery IMPRESSION: 1. Large fluid collection to the right of the distal esophagus above the gastroesophageal junction likely represents a postoperative seroma or hematoma. However, superimposed developing abscess or esophageal leak cannot be excluded and clinical correlation is recommended. An esophagram would be helpful to exclude a focal esophageal leak. 2. Postoperative changes related to Richa fundoplication. No recurrent hiatal hernia is evident. Mild edema within the mesentery surrounding the upper stomach is present without an intraperitoneal loculated fluid collection evident. 3. Markedly abnormal bladder and prostate. The prostate is diffusely enlarged and heterogeneous. Thickening of the urinary bladder wall probably is related to chronic bladder outlet obstruction. However, chronic cystitis or a neoplastic process to either the bladder and/or the prostate cannot be excluded. There are bladder diverticula present. 4. Fat-containing left inguinal hernia. Dictated by: Jovan Aviles M.D. on 01/31/2017 at 15:27 Assessment & Plan Patient is an 86-year-old male with a medical history significant for CAD, hypertension, BPH, and cholecystectomy who recently underwent Niesen fundoplication on 01/20/2017 came in with lower abdominal pain, found to have leukocytosis with a likely source of infection UTI. # Complicated urinary tract infection, present on admission, active -UA positive for nitrates, bacteria, and WBC - urine culture growing > 100,000 GNRs , awaiting sensitivity. Blood culture pending -Continue ceftriaxone every 24 hours # Leukocytosis -Likely UTI,unlikely right distal esophagus abscess, C. difficile ruled out -Antibiotics as above -Blood pending and urine cultures > 100,000 GNRs # Status post recent Niesen fundoplication -CT with contrast with large fluid collection measuring 5.35.67.6 -Patient and asymptomatic, no dysphagia, nausea or vomiting, or upper abdominal pain -Continue to monitor -Consider esophageal Gastrografin should patient exhibited dysphagic -Surgery has been consulted and following # Diarrhea - C. difficile negative -Hydrated with 100 mL/hr normal saline. Discontinue today #cEssential hypertension -Restart home amlodipine 5 mg daily # Coronary artery disease -Restart aspirin and atorvastatin CODE STATUS: Full code Antinausea medication when necessary Bowel regimen when necessary Patient Status: inpatient Disposition: Possible discharge home tomorrow on oral antibiotics once sensitivities available Resuscitation Status: CPR: Attempt Resuscitation Randy Villegas MD Feb 01, 2017 12:45
--- NOTE | 2017-02-01 13:27 | NUR ---
Social Work: Initial Assessment/Readiness for D/C/ Multidisciplinary Rounds D: EMR reviewed. Please see Initial Assessment linked to this note for more information. Pt is a 86 year old male admitted [place] with a readmit risk score of 3 for UTI per H&P. Pt's insurance is Medicare and [employer] Supplement. PCP is FISH Stewart. SW met with pt at bedside to conduct initial assessment. Pt was alert and oriented x3. SW explained role and wrote phone number on white board. SW provided [facility] Discharge Planning Checklist and encouraged pt to contact SW for any discharge planning questions. Pt discussed in multidisciplinary rounds. Pt is likely to d/c tomorrow, No SW needs identified, no MD orders received. Pt lives at home alone in [place]. Pt is independent with all ADLs. Pt has no DME. Pt ambulates independently. Pt drives. Pt's friends to provide transportation home at d/c. Pt has completed DPOA, states friends Dean and Pebbles Bai are POA. SW requested paperwork. A: Pt who is independent at baseline and has the capacity for self-care. P: Pt anticipated to discharge home with friends to transport via POV. No SW needs identified, no MD orders received. SW will continue to follow for needs until time of discharge. ELOISA House Addendum: 02/01/17 at 1329 by MKIO ALFREDO SS Amended: Links added.
[2017-02-01 13:46] VITALS: BP 107/51; PULSE 77; RESP 18; O2SAT 95
[2017-02-01] MEDS: cefTRIAXone Inj 2,000 MG in Dextrose 5% Minibag Plus 50 ML IV SCH (17:45)
--- NOTE | 2017-02-01 19:21 | NUR ---
GI- Patient denies discomfort. Up to bathroom and having soft formed stool this am, and sample sent to lab,and large loose stool this afternoon. Denies N&V. Tolerating full liquids.
[2017-02-01 20:46] VITALS: BP 116/70; PULSE 72; RESP 18; O2SAT 97
[2017-02-02] MEDS: Heparin 5,000 Unit/mL Inj SUBQ SCH ×3 (03:28→17:26)
[2017-02-02 04:54] VITALS: BP 115/69; PULSE 63; RESP 18; O2SAT 96
--- NOTE | 2017-02-02 05:40 | NUR ---
Diet Patient states he feels ready to advance diet, supposedly he can resume general foods on 02/03; tolerating full liquids at this time. IV abx and then saline locked. Diarrhea continued this shift. No complaints of SOB or chest pains. Care continues
[2017-02-02 06:51] LABS: BASOPHILS % (AUTO) 0.4 % (0-3); EOSINOPHILS % (AUTO) 3.7 % (0-5); MONOCYTES % (AUTO) 11.5 % (4-12); Mean Corpuscular Hemoglobin 31.9 pg (27.0-35.0); Mean Corpuscular Volume 95.7 fL (81-100); NEUTROPHILS % (AUTO) 75.5 % (40-74); Platelet Count 218 bil/L (150-400)
--- NOTE | 2017-02-02 08:47 | PCM.PNMED ---
Subjective Date of Service Feb 02, 2017 Subjective Patient seen and examined. Doing good. No complaints. Vitals stable. Exam Vital Signs Vital Sign - Last Date Time Temp Pulse Resp B/P Pulse Ox O2 Delivery O2 Flow Rate FiO2 02/02/17 04:54 36.5 63 18 115/69 96 Room Air Intake and Output 02/01/17 02/01/17 02/02/17 Cumulative From/Thru 15:00 23:00 07:00 01/31/17 13:44 - 02/02/17 06:20 Intake Total 1377 ml 525 ml 4776 ml Output Total 1200 ml 1125 ml 2975 ml Balance 177 ml -600 ml 1801 ml Intake Oral 1377 ml 400 ml 2577 ml IV Total 125 ml 2199 ml Output Urine Total 1200 ml 1125 ml 2975 ml # Voids 1 4 # Bowel Movements 0 0 Exam General: No acute distress, appropriately interactive Neck: No JVD, No bruits. No lymphadenopathy or thyromegaly. Cardiovascular: Regular rate and rhythm with 3+ systolic heart murmurs, no rubs , or gallops appreciated Pulmonary: b/l air sound with no crackles, wheezes, or rhonchi. no use of accessory muscles. Abdomen: +Bowel sound, Soft, nontender, nondistended. Mild suprapubic tenderness, no costophrenic angle tenderness Extremities: No clubbing or cyanosis, no lymphedema, no b/l lower leg edema Lab and Diagnostics Result Diagram: 02/02/17 0557 02/02/17 0557 X-Rays, CTs and MRIs PROCEDURE: CT ABDOMEN AND PELVIS WITH CONTRAST ([id number]) INDICATIONS: upper abd discomfort post surgery IMPRESSION: 1. Large fluid collection to the right of the distal esophagus above the gastroesophageal junction likely represents a postoperative seroma or hematoma. However, superimposed developing abscess or esophageal leak cannot be excluded and clinical correlation is recommended. An esophagram would be helpful to exclude a focal esophageal leak. 2. Postoperative changes related to Richa fundoplication. No recurrent hiatal hernia is evident. Mild edema within the mesentery surrounding the upper stomach is present without an intraperitoneal loculated fluid collection evident. 3. Markedly abnormal bladder and prostate. The prostate is diffusely enlarged and heterogeneous. Thickening of the urinary bladder wall probably is related to chronic bladder outlet obstruction. However, chronic cystitis or a neoplastic process to either the bladder and/or the prostate cannot be excluded. There are bladder diverticula present. 4. Fat-containing left inguinal hernia. Dictated by: Jovan Aviles M.D. on 01/31/2017 at 15:27 Assessment & Plan Patient is an 86-year-old male with a medical history significant for CAD, hypertension, BPH, and cholecystectomy who recently underwent Niesen fundoplication on 01/20/2017 came in with lower abdominal pain, found to have leukocytosis with a likely source of infection UTI. # Complicated urinary tract infection, present on admission, active -UA positive for nitrates, bacteria, and WBC - urine culture growing > 100,000 GNRs , awaiting sensitivity. Blood culture pending -Continue ceftriaxone every 24 hours # Leukocytosis -Likely UTI,unlikely right distal esophagus abscess, C. difficile ruled out -Antibiotics as above -Blood pending and urine cultures > 100,000 GNRs - trended down # Status post recent Niesen fundoplication -CT with contrast with large fluid collection measuring 5.35.67.6, most likely seroma -Patient and asymptomatic, no dysphagia, nausea or vomiting, or upper abdominal pain -Continue to monitor, -Consider esophageal Gastrografin should patient exhibited dysphagic -Surgery has been consulted and following # Diarrhea - C. difficile negative - resolved #cEssential hypertension -Restart home amlodipine 5 mg daily # Coronary artery disease -Restart aspirin and atorvastatin CODE STATUS: Full code Antinausea medication when necessary Bowel regimen when necessary Patient Status: inpatient Disposition: likely dc tomorrow, based on wbc rend Resuscitation Status: CPR: Attempt Resuscitation Jesus Robles MD Feb 02, 2017 08:47
[2017-02-02 13:11] VITALS: BP 126/74; PULSE 73; RESP 18; O2SAT 96
--- NOTE | 2017-02-02 17:46 | NUR ---
Diet, Pain Patient tolerating diet well, with no nausea or other difficulty. Patient states that he has no pain to his abdominal surgical sites. Care is ongoing.
[2017-02-02] MEDS: cefTRIAXone Inj 2,000 MG in Dextrose 5% Minibag Plus 50 ML IV SCH (18:03)
[2017-02-02 20:20] VITALS: BP 127/74; PULSE 73; RESP 16; O2SAT 94
[2017-02-03] MEDS: Heparin 5,000 Unit/mL Inj SUBQ SCH ×2 (00:42→08:00)
[2017-02-03 04:47] VITALS: BP 136/81; PULSE 65; RESP 18; O2SAT 95
[2017-02-03 06:04] LABS: EOSINOPHILS % (AUTO) 6.3 % (0-5); MONOCYTES % (AUTO) 13.5 % (4-12); Mean Corpuscular Hemoglobin 31.7 pg (27.0-35.0); NEUTROPHILS % (AUTO) 64.9 % (40-74); Platelet Count 255 bil/L (150-400)
[2017-02-03] MEDS ORDERED: CIPR-231 PO (09:00)
--- NOTE | 2017-02-03 09:01 | PCM.DIMED ---
Discharge Instructions Date of Service Feb 03, 2017 Dates of Hospitalization Jan 31, 2017 at 17:36 Discharge Diagnosis Discharge Diagnosis UTI Diet Discharge Diet: Other (Soft diet as recommended by surgery ) Patient Instructions Patient Instructions Follow up with surgery as originally recommended Follow-up with PCP in: 1 week Jesus Robles MD Feb 03, 2017 09:01
--- NOTE | 2017-02-03 09:07 | PCM.DC.MED ---
Discharge Summary Date of Service Feb 03, 2017 Dates of Hospitalization Date of Hospital Admission Jan 31, 2017 at 17:36 Date of Discharge: Feb 03, 2017 Providers: Admitting Physician: Randy Villegas MD Primary Care Physician: Shefail Luciano Attending Physician: Ronit Britt MD Diagnosis at Time of Discharge Diagnosis at Time of Discharge UTI Procedures XRay, CTs & MRIs PROCEDURE: CT ABDOMEN AND PELVIS WITH CONTRAST (PNL-7102) INDICATIONS: upper abd discomfort post surgery IMPRESSION: 1. Large fluid collection to the right of the distal esophagus above the gastroesophageal junction likely represents a postoperative seroma or hematoma. However, superimposed developing abscess or esophageal leak cannot be excluded and clinical correlation is recommended. An esophagram would be helpful to exclude a focal esophageal leak. 2. Postoperative changes related to Richa fundoplication. No recurrent hiatal hernia is evident. Mild edema within the mesentery surrounding the upper stomach is present without an intraperitoneal loculated fluid collection evident. 3. Markedly abnormal bladder and prostate. The prostate is diffusely enlarged and heterogeneous. Thickening of the urinary bladder wall probably is related to chronic bladder outlet obstruction. However, chronic cystitis or a neoplastic process to either the bladder and/or the prostate cannot be excluded. There are bladder diverticula present. 4. Fat-containing left inguinal hernia. Dictated by: Jovan Aviles M.D. on 01/31/2017 at 15:27 Brief History Patient reported pain started about 2 days ago and felt significantly weak. Patient lost appetite, but denies any nausea, vomiting, coughing, or upper abdominal pain. He further denies any dysphagia. He endorse taking liquids without any difficulty. Then today, patient's symptoms seems to worsen, in addition patient started having diarrhea this morning. He was thus brought into the emergency room for evaluation. Patient denies any lower back pain, fevers, chills, night sweats. On review of system, patient states mild bilateral frontal headaches that has nearly resolved since arrival to the ED. The ED, patient vital remained stable, temperature 37.4, pulse 82, respiratory 18, blood pressure 129/64, pulse ox 95%. Lab CBC significant for white blood cells 26.6, with neutrophils of 89%. A CT abdomen pelvis with contrast was done demonstrating a large collection of fluids 5.35.67.6 cm in the right of distal esophagus concerning for seroma, hematoma, possible superimpose developing abscess or esophageal leak. Surgery was consulted and evaluated patient, noted fluid collection less likely be infected or resultant of a perforation of the stomach or esophagus. Patient instead, likely UA showed large occult blood, urine nitrate, and urine WBC 1150, many urine bacteria. Hospital Course Patient is an 86-year-old male with a medical history significant for CAD, hypertension, BPH, and cholecystectomy who recently underwent Niesen fundoplication on 01/20/2017 came in with lower abdominal pain, found to have leukocytosis with a likely source of infection UTI. # Complicated urinary tract infection, present on admission, active -UA positive for nitrates, bacteria, and WBC - urine culture growing > 100,000 GNRs , Kleibsella , sensitive to cipro - po cipro X 7 days # Leukocytosis 2/2 UTI -Likely UTI,unlikely right distal esophagus abscess, C. difficile ruled out -Antibiotics as above -Blood pending and urine cultures > 100,000 GNRs - trended down # Status post recent Niesen fundoplication -CT with contrast with large fluid collection measuring 5.35.67.6, most likely seroma -Patient and asymptomatic, no dysphagia, nausea or vomiting, or upper abdominal pain # Diarrhea - C. difficile negative - resolved #cEssential hypertension -home amlodipine 5 mg daily # Coronary artery disease -home aspirin and atorvastatin CODE STATUS: Full code Antinausea medication when necessary Bowel regimen when necessary Exam Vital Signs (Last) Date Time Temp Pulse Resp B/P Pulse Ox O2 Delivery O2 Flow Rate FiO2 02/03/17 04:47 36.8 65 18 136/81 95 Room Air Test 01/31/17 15:10 01/31/17 15:13 01/31/17 15:33 02/02/17 05:57 Hold Purple Top Tube Received (Received) Hold Blue Top Tube Received (Received) Hold Red Top Tube Received (Received) Hold [place] Top Tube Received (Received) Hold [place] Top Tube Received (Received) Prothrombin Time 11.7sec (8.1-12.5) Prothromb Time International Ratio 1.09ratio Lactic Acid Level 1.4mmol/L (0.4-2.0) Magnesium Level 1.6mg/dL (1.6-2.6) Total Bilirubin 0.8mg/dL (0.0-1.2) Aspartate Amino Transf (AST/SGOT) 16U/L (0-50) Alanine Aminotransferase (ALT/SGPT) 11U/L (0-44) Alkaline Phosphatase 94U/L (25-160) Total Protein 7.1g/dL (6.4-8.4) Albumin 3.7g/dL (3.4-5.0) Lipase 16U/L (13-60) Urine Color Yellow (YELLOW) Urine Appearance Hazy (CLEAR,HAZY) Urine pH 5.5 (5.0-8.0) Urine Specific [place] 1.025 (1.003-1.035) Urine Protein 30mg/dL (NEG,TRACE) Urine Glucose (UA) Negativemg/dL (NEGATIVE) Urine Ketones 15mg/dL (NEGATIVE) Urine Occult Blood Large (NEGATIVE) Urine Nitrite Positive (NEGATIVE) Urine Bilirubin Negative (NEGATIVE) Urine Urobilinogen Normalmg/dL (NORMAL) Urine Leukocyte Esterase Moderate (NEGATIVE) Urine RBC 3-10/hpf (0-2) Urine WBC 11-50/hpf (0-5) Urine Epithelial Cells None/hpf (NONE-MOD) Urine Crystals None seen (NONE SEEN) Urine Bacteria Many/hpf (NONE-FEW) Urine Hyaline Casts None/lpf (NONE) Urine Granular Casts None seen (NONE SEEN) Urine Waxy Casts None seen (NONE SEEN) Urine Red Blood Cell Casts None seen (NONE SEEN) Urine White Blood Cell Casts None seen (NONE SEEN) Urine Mucus Present (None Seen) Urine Trichomonas None seen (NONE SEEN) Urine Yeast None (NONE SEEN) Urinalysis Comment None Urine Culture Reflexed Indicated Sodium Level 142mEq/L (134-144) Potassium Level 4.0mEq/L (3.5-5.2) Chloride Level 104mEq/L (97-108) Carbon Dioxide Level 25mmol/L (18-29) Blood Urea Nitrogen 11mg/dL (8-27) Creatinine 0.85mg/dL (0.76-1.27) Estimat Glomerular Filtration Rate 91mL/min (>59) Glucose Level 96mg/dL (60-99) Calcium Level 8.3mg/dL (8.5-10.1) Test 02/03/17 05:35 White Blood Count 6.8th/mm3 (3.8-10.1) Red Blood Count 4.20mil/mm3 (4.40-5.80) Hemoglobin 13.3g/dL (13.8-17.2) Hematocrit 39.5% (41.0-50.0) Mean Corpuscular Volume 94.0fL (81-100) Mean Corpuscular Hemoglobin 31.7pg (27.0-35.0) Mean Corpuscular Hemoglobin Concent 33.7% (32.0-37.0) Red Cell Distribution Width 12.5% (12.3-15.4) Platelet Count 255bil/L (150-400) Neutrophils (%) (Auto) 64.9% (40-74) Lymphocytes (%) (Auto) 13.4% (14-46) Monocytes (%) (Auto) 13.5% (4-12) Eosinophils (%) (Auto) 6.3% (0-5) Basophils (%) (Auto) 1.0% (0-3) Discharge Medications Discharge Medications Amlodipine (Norvasc) 5 Mg Tablet 5 MG PO QAM (Reported) Aspirin (Aspirin) 325 Mg Tablet 325 MG PO QAM (Reported) Atorvastatin (Lipitor) 20 Mg Tablet 20 MG PO HS Prescribed by: STERLING DOUGLASS DO Cholecalciferol (Vitamin D3) (Vitamin D3) 5,000 Unit Capsule 5,000 UNIT PO QAM ( Reported) Ciprofloxacin (Cipro) 500 Mg Tablet 500 MG PO BID Prescribed by: RONIT BRITT MD Cyanocobalamin/FA/Pyridoxine (B Complex-Folic Acid Tablet) 1 Each Tablet 1 EACH PO DAILY (Reported) Ferrous Sulfate (Ferrous Sulfate) 325 Mg Tablet 325 MG PO DAILY (Reported) Lisinopril (Lisinopril) 10 Mg Tablet 10 MG PO QAM (Reported) As needed Ascorbic Acid (Vitamin C) 250 Mg Tab.chew 500 MG PO DAILY PRN PRN COLD (Reported ) Followup Plan Discharge Diet: Other (Soft diet as recommended by surgery ) Patient Instructions Follow up with surgery as originally recommended Follow-up with PCP in: 1 week Time spent 35 mins Ronit Britt MD Feb 03, 2017 09:07
[2017-02-03 09:10] VITALS: BP 134/79; PULSE 69; RESP 16; O2SAT 95
--- NOTE | 2017-02-03 09:26 | NUR ---
Social Work- Discharge Data: EMR reviewed. Pt is on day 3 of hospitalization for UTI per H&P. Pt is medically stable for d/c, d/c orders are active. SW met with pt at bedside to confirm d/c plan. Pt is independent with all ADLs at baseline. Pt confirms that his friends will transport him home at d/c. No d/c needs. Assessment: Pt who is independent at baseline. Plan: Pt to d/c home with no d/c needs, friends to transport via POV. Hali Thompson MSW
--- NOTE | 2017-02-03 13:52 | NUR ---
Discharge Orders for discharge were received. The patient was made aware of the plan to discharge and was agreeable to go. The patient was given information and teaching on his diagnosis and treatment, signs and symptoms to be aware of, follow up instruction, diet restrictions related to previous surgery, new medications and teaching as well as a physical handout on the medication. The patient signified understanding of this information, verified using the teach back method. The patient's asymptomatic IV was then removed intact and the patient was dressed in his own clothing and his belongings gathered. The patient denies any belongings in the hospital pharmacy or safe. The patient then ambulated into a wheelchair which took him to the main entrance where he entered a private vehicle driven by a friend. At the time of discharge the patient was alert and oriented, with no complaint of nausea, chest pain, shortness of breath or out of control pain. The patient's lap surgical sites were all clean, dry and intact with steri-strips in place.
== END 2017-02-03 12:06 | disposition home or self-care (01) | DRG 690 ==
LOC: SED 13:40 → OSC 17:36
PROVIDERS: ADMIT Internal Medicine; ATTEND Internal Medicine
DX: N39.0 Urinary tract infection, site not specified (principal); I10 Essential (primary) hypertension; I25.10 Atherosclerotic heart disease of native coronary artery without angina pectoris; E78.5 Hyperlipidemia, unspecified; Z98.890 Other specified postprocedural states; Z79.82 Long term (current) use of aspirin; Z88.0 Allergy status to penicillin